=== PATIENT | male | born 1975 | race African-American/Black ===

== ENCOUNTER 2023-08-03 15:23 | Outpatient (AMB) | payer OTHER, SELFPAY ==
--- NOTE | 2023-08-03 15:29 | HO.NEPHOV_ITS ---
Vital Signs 08/03/23 15:30 Height 6 ft 2 in Weight 272 lb BMI 34.9 BP 140/80 H Blood Pressure Location Lt brachial Position Sitting Pulse 92 Pulse Source Pulse Oximeter Pulse Oximetry (%) 98 Oxygen Delivery Method Room Air Intake Visit Reasons: Previous pt/ LVM to call back to move apt Client Account Specialist Required: No Accompanied by: Self / Same As Patient Allergies No Known Allergies Allergy (Verified 08/03/23 15:32) HPI Comments Details: I had the privilege of seeing Chadd in follow-up of his chronic kidney disease and hypertension. He had high blood sugars for a long time but is better control now. His blood pressure has been at goal. He has lost some weight after he was started on Ozempic. He has history of congestive heart failure but denies any coronary artery disease, CVA, PVD or ADRIAN. He is known to have proteinuria. He has history of gout and is on medications which is keeping it under good control. He denies any chest pain, shortness of breath, paroxysmal nocturnal dyspnea, orthopnea, pedal edema or orthostatic symptoms. He claims to be compliant with his medications. He avoids nonsteroidal anti-inflammatories. There were no other new active complaints at the time of this office visit. [facility] Medical History (Updated 08/30/23 @ 17:13 by Ga Liu MD) Rupture quadriceps tendon Surgical History (Updated 08/03/23 @ 15:39 by Dixie Taveras MA) History of surgery on lower extremity History of hand surgery History of surgical removal of meniscus of knee Family History (Updated 08/03/23 @ 15:35 by Dixie Taveras MA) Father Diabetes Social History (Updated 08/03/23 @ 15:35 by Dixie Taveras MA) Alcohol intake: current Patient Tobacco Use Status: Never used Tobacco Physical Exam Vital Signs: Last Vital Signs Pulse 92 08/03/23 15:30 BP 140/80 H 08/03/23 15:30 Pulse Ox 98 08/03/23 15:30 Oxygen Delivery Method Room Air 08/03/23 15:30 BMI result Body Mass Index 34.9 Const General: comfortable and no acute distress Orientation/consciousness: patient oriented x3 HEENT Head: Yes normocephalic Mouth: Normal oral and palatal mucosa present Eyes EOM: EOMs intact bilaterally Neck Neck: Yes supple Resp Auscultation: clear to auscultation bilaterally Cardio Jugular venous distension: no JVD Rate: regular rate GI Palpation (GI): Soft to palpation Auscultation: normal bowel sounds General: Yes no CVA tenderness Back/Spine/Pelvis Back: no CVA tenderness Skin General skin exam: no rashes or lesions noted Neuro General: patient oriented x3 and moves all extremities Extrem General: Yes no pedal edema Results Reviewed Nephrology Results: Hgb 11.5 g/dl (14.0-18.0) L 08/03/23 WBC 5.9 X10*3/uL (4.8-10.8) 08/03/23 Plt Count 194 X10*3/uL (160-400) 08/03/23 Sodium 138 mmol/L (135-145) 08/03/23 Potassium 3.7 mmol/L (3.3-5.1) 08/03/23 Chloride 103 mmol/L (96-108) 08/03/23 Carbon Dioxide 24 mmol/L (22-29) 08/03/23 BUN 40 mg/dL (9-16) H 08/03/23 Creatinine 1.79 mg/dL (0.5-1.4) H 08/03/23 Calcium 9.6 mg/dL (8.4-10.2) 08/03/23 Urine Creatinine 178.86 mg/dL 08/03/23 Protein/Creatinin Ratio 0.60 (<0.2) H 08/03/23 Assessment & Plan Assessment & Plan (1) Hypertension: Code(s): I10 - Essential (primary) hypertension Category: Medical Qualifiers: Hypertension type: primary hypertension Qualified Code(s): I10 - Essential (primary) hypertension (2) Diabetic nephropathy: Code(s): E11.21 - Type 2 diabetes mellitus with diabetic nephropathy Category: Medical (3) Hyperuricemia: Code(s): E79.0 - Hyperuricemia without signs of inflammatory arthritis and tophaceous disease Category: Medical (4) CKD stage 3a, GFR 45-59 ml/min: Code(s): N18.31 - Chronic kidney disease, stage 3a Category: Medical Plan 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 His proteinuric. He denies any retinopathy. His blood pressure is better controlled. He has not on any ARCENIO inhibitor or ARB which I plan to initiate with time. He needs to lose more weight. He is on spironolactone. He has a great candidate for [employer] or [employer]. His renal functions are currently stable. He maintains good hydration and avoids nonsteroidal anti- inflammatories. I did not make any medication changes today but rather discussed his CKD and further ongoing management strategies. Answered all questions. Follow-up appointment given. Orders: Orders Complete Blood Count Auto Diff 08/03/23 I10 - Essential (primary) hypertension, E11.21 - Type 2 diabetes mellitus with diabetic nephropathy Creatinine 08/03/23 I10 - Essential (primary) hypertension, E11.21 - Type 2 diabetes mellitus with diabetic nephropathy Uric Acid 08/03/23 E79.0 - Hyperuricemia without signs of inflammatory arthritis and tophaceous disease, E11.21 - Type 2 diabetes mellitus with diabetic nephropathy, I10 - Essential (primary) hypertension Hemoglobin A1c 08/03/23 I10 - Essential (primary) hypertension, E11.21 - Type 2 diabetes mellitus with diabetic nephropathy Protein Creatinine Ratio, Ur 08/03/23 I10 - Essential (primary) hypertension, E11.21 - Type 2 diabetes mellitus with diabetic nephropathy Blood Urea Nitrogen 08/03/23 I10 - Essential (primary) hypertension, E11.21 - Type 2 diabetes mellitus with diabetic nephropathy Electrolytes 08/03/23 I10 - Essential (primary) hypertension, E11.21 - Type 2 diabetes mellitus with diabetic nephropathy Calcium 08/03/23 I10 - Essential (primary) hypertension, E11.21 - Type 2 diabetes mellitus with diabetic nephropathy Coding Level of Care Code Est Pt Level 4 (35919) Diagnoses Primary hypertension I10 Hypertension type: primary hypertension Diabetic nephropathy E11.21 Hyperuricemia E79.0 CKD stage 3a, GFR 45-59 ml/min N18.31
[2023-08-03 15:30] VITALS: BP 140/80; PULSE 92; O2SAT 98; BMI 34.9
== END 2023-08-03 16:35 | disposition home or self-care (01) ==
PROVIDERS: Visit Provider Internal Medicine Nephrology
DX: I10 Essential (primary) hypertension (principal); E11.21 Type 2 diabetes mellitus with diabetic nephropathy; E79.0 Hyperuricemia without signs of inflammatory arthritis and tophaceous disease; N18.31 Chronic kidney disease, stage 3a
CPT/HCPCS: 99214

== ENCOUNTER 2023-08-03 15:23 | Outpatient (REF) | payer OTHER, SELFPAY ==
[2023-08-03 19:09] LABS: MANUAL DIFF FLAG NO
[2023-08-03 19:23] LABS: Basophils Percent Auto 0.7 % (0-2); Eosinophils Percent Auto 0.7 % (0-4); Hematocrit 35.4 % (42.0-52.0); Hemoglobin 11.5 g/dl (14.0-18.0); Imm Gran Abs Auto 0.01 X10*3/uL (0.00-0.03); Imm Gran Pct Auto 0.2 % (0.0-0.4); Lymphocytes Absolute Auto 2.4 X10*3/uL (1.2-4.9); Lymphocytes Percent Auto 40.3 % (20-40); Mean Corpuscular HGB Conc 32.5 g/dl (31.0-36.0); Mean Corpuscular Hemoglobin 27.7 pg (27.0-33.0); Mean Corpuscular Volume 85.3 fL (80.0-98.0); Mean Platelet Volume 12.4 fL (9.4-12.4); Monocytes Absolute Auto 0.5 X10*3/uL (0.1-1.2); Monocytes Percent Auto 9.2 % (2-11); Neutrophils Absolute Auto 2.9 x10*3/uL (2.0-8.3); Neutrophils Percent Auto 48.9 % (45-73); Platelet Count 194 X10*3/uL (160-400); Red Blood Count 4.15 X10*6/uL (4.60-5.80); Red Cell Distribution Width 14.9 % (11.0-16.0); White Blood Count 5.9 X10*3/uL (4.8-10.8)
[2023-08-03 19:37] LABS: Estimated Average Glucose 169 mg/dL; Hemoglobin A1c % 7.5 % (<6.0)
[2023-08-03 20:08] LABS: Anion Gap 15 (12-20); Blood Urea Nitrogen 40 mg/dL (9-16); Calcium 9.6 mg/dL (8.4-10.2); Carbon Dioxide 24 mmol/L (22-29); Chloride 103 mmol/L (96-108); Creatinine Urine 178.86 mg/dL; Estimated Glomerular Filt Rate 40; Potassium 3.7 mmol/L (3.3-5.1); Sodium 138 mmol/L (135-145); Total Protein Urine Random 107 mg/dL (<12); Uric Acid 9.5 mg/dL (3.4-7.0)
== END 2023-08-03 15:24 | disposition home or self-care (01) ==
LOC: HO.HKASLDS 15:23
PROVIDERS: Visit Provider Internal Medicine Nephrology
DX: I12.9 Hypertensive chronic kidney disease with stage 1 through stage 4 chronic kidney disease, or unspecified chronic kidney disease (principal); E11.22 Type 2 diabetes mellitus with diabetic chronic kidney disease; N18.31 Chronic kidney disease, stage 3a; E11.21 Type 2 diabetes mellitus with diabetic nephropathy; E79.0 Hyperuricemia without signs of inflammatory arthritis and tophaceous disease
CPT/HCPCS: 36415; 80051; 82310; 82565; 82570; 83036; 84156; 84520; 84550; 85025

== ENCOUNTER 2023-11-11 15:11 | Outpatient (AMB) | payer OTHER, SELFPAY ==
--- NOTE | 2023-11-11 15:28 | HO.NEPHOV ---
Vital Signs 11/11/23 15:29 Height 6 ft 2 in Weight 277 lb 2 oz BMI 35.6 BP 130/70 Blood Pressure Location Lt brachial Position Sitting Pulse 90 Pulse Source Pulse Oximeter Pulse Oximetry (%) 99 Oxygen Delivery Method Room Air Intake Visit Reasons: Creatinine f/u visit/ LVM Inspector Salvage Required: No Accompanied by: Self / Same As Patient Allergies No Known Allergies Allergy (Verified 11/11/23 15:30) HPI Comments Details: I had the privilege of seeing Chadd in follow-up of his chronic kidney disease and hypertension. He had high blood sugars for a long time but is better control now. His blood pressure has been at goal. He has lost some weight after he was started on Ozempic. He has history of congestive heart failure but denies any coronary artery disease, CVA, PVD or ADRIAN. He is known to have proteinuria. He has history of gout and is on medications which is keeping it under good control. He denies any chest pain, shortness of breath, paroxysmal nocturnal dyspnea, orthopnea, pedal edema or orthostatic symptoms. He claims to be compliant with his medications. He avoids nonsteroidal anti-inflammatories. He is on ACEI. There were no other new active complaints at the time of this office visit. [facility] Medical History (Updated 11/11/23 @ 15:35 by Ga Liu MD) Rupture quadriceps tendon Surgical History History of surgery on lower extremity History of hand surgery History of surgical removal of meniscus of knee Family History Father Diabetes Social History Alcohol intake: current Patient Tobacco Use Status: Never used Tobacco Physical Exam Vital Signs: Last Vital Signs Pulse 90 11/11/23 15:29 BP 130/70 11/11/23 15:29 Pulse Ox 99 11/11/23 15:29 Oxygen Delivery Method Room Air 11/11/23 15:29 BMI result Body Mass Index 35.6 Results Reviewed Nephrology Results: Hgb 11.5 g/dl (14.0-18.0) L 08/03/23 WBC 5.9 X10*3/uL (4.8-10.8) 08/03/23 Plt Count 194 X10*3/uL (160-400) 08/03/23 Sodium 138 mmol/L (135-145) 08/03/23 Potassium 3.7 mmol/L (3.3-5.1) 08/03/23 Chloride 103 mmol/L (96-108) 08/03/23 Carbon Dioxide 24 mmol/L (22-29) 08/03/23 BUN 40 mg/dL (9-16) H 08/03/23 Creatinine 1.79 mg/dL (0.5-1.4) H 08/03/23 Calcium 9.6 mg/dL (8.4-10.2) 08/03/23 Urine Creatinine 178.86 mg/dL 08/03/23 Protein/Creatinin Ratio 0.60 (<0.2) H 08/03/23 Assessment & Plan Assessment & Plan (1) CKD stage 3a, GFR 45-59 ml/min: Code(s): N18.31 - Chronic kidney disease, stage 3a Category: Medical (2) Diabetic nephropathy: Code(s): E11.21 - Type 2 diabetes mellitus with diabetic nephropathy Category: Medical Qualifiers: Diabetes mellitus type: type 2 Qualified Code(s): E11.21 - Type 2 diabetes mellitus with diabetic nephropathy (3) Hypertension: Code(s): I10 - Essential (primary) hypertension Category: Medical Qualifiers: Hypertension type: primary hypertension Qualified Code(s): I10 - Essential (primary) hypertension Plan 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 He is proteinuric. He is on ACEI. He denies any retinopathy. His blood pressure is better controlled. He needs to lose more weight. He is on spironolactone. I started on Jardiance 10 mg daily and asked him to D/C metformin. His renal functions are currently stable. Labs from today pending. He maintains good hydration and avoids nonsteroidal anti-inflammatories. Answered all questions. Follow-up appointment given. Orders: Orders Blood Urea Nitrogen Today E11.21 - Type 2 diabetes mellitus with diabetic nephropathy, I10 - Essential (primary) hypertension, N18.31 - Chronic kidney disease, stage 3a Creatinine Today E11.21 - Type 2 diabetes mellitus with diabetic nephropathy, I10 - Essential (primary) hypertension, N18.31 - Chronic kidney disease, stage 3a Electrolytes Today E11.21 - Type 2 diabetes mellitus with diabetic nephropathy, I10 - Essential (primary) hypertension, N18.31 - Chronic kidney disease, stage 3a Medications: New empagliflozin (Jardiance) 10 mg PO DAILY 30 tabs 6RF Coding Level of Care Code Est Pt Level 4 (38795) Diagnoses CKD stage 3a, GFR 45-59 ml/min N18.31 Diabetic nephropathy associated with type 2 diabetes mellitus E11.21 Diabetes mellitus type: type 2 Primary hypertension I10 Hypertension type: primary hypertension
[2023-11-11 15:29] VITALS: BP 130/70; PULSE 90; O2SAT 99; BMI 35.6
== END 2023-11-11 15:49 | disposition home or self-care (01) ==
PROVIDERS: Visit Provider Internal Medicine Nephrology
DX: N18.31 Chronic kidney disease, stage 3a (principal); E11.21 Type 2 diabetes mellitus with diabetic nephropathy; I10 Essential (primary) hypertension
CPT/HCPCS: 99214

== ENCOUNTER → 2023-11-11 15:11 | Outpatient (BNVA) | payer OTHER, SELFPAY | PROVIDERS: Visit Provider Internal Medicine Nephrology ==

== ENCOUNTER 2024-01-20 14:53 | Outpatient (AMB) | payer OTHER, SELFPAY ==
--- NOTE | 2024-01-20 14:54 | HO.NEPHOV_ITS ---
Vital Signs 01/20/24 15:05 Height 6 ft 2 in Weight 267 lb BMI 34.3 BP 120/72 Blood Pressure Location Lt brachial Position Sitting Pulse 85 Pulse Source Pulse Oximeter Pulse Oximetry (%) 99 Oxygen Delivery Method Room Air Intake Visit Reasons: 2 mon follow up/ Conf Barrel Rifler Operator Required: No Accompanied by: Self / Same As Patient Allergies No Known Allergies Allergy (Verified 01/20/24 15:06) HPI Comments Details: I had the privilege of seeing Chadd in follow-up of his chronic kidney disease and hypertension. He had high blood sugars for a long time but is better control now. His blood pressure has been at goal. He has lost some weight after he was started on Ozempic. He has history of congestive heart failure but denies any coronary artery disease, CVA, PVD or ADRIAN. He is known to have proteinuria. He has history of gout and is on medications which is keeping it under good control. He denies any chest pain, shortness of breath, paroxysmal nocturnal dyspnea, orthopnea, pedal edema or orthostatic symptoms. He claims to be compliant with his medications. He avoids nonsteroidal anti-inflammatories. He is on ACEI. There were no other new active complaints at the time of this office visit. [facility] Medical History (Updated 11/11/23 @ 15:35 by Ga Liu MD) Rupture quadriceps tendon Surgical History History of surgery on lower extremity History of hand surgery History of surgical removal of meniscus of knee Family History Father Diabetes Social History Alcohol intake: current Patient Tobacco Use Status: Never used Tobacco Review of Systems Const All systems reviewed & are unremarkable except as noted in HPI and below Physical Exam Vital Signs: Last Vital Signs Pulse 85 01/20/24 15:05 BP 120/72 01/20/24 15:05 Pulse Ox 99 01/20/24 15:05 Oxygen Delivery Method Room Air 01/20/24 15:05 BMI result Body Mass Index 34.3 Const General: comfortable and no acute distress Orientation/consciousness: patient oriented x3 HEENT Head: Yes normocephalic Mouth: Normal oral and palatal mucosa present Eyes EOM: EOMs intact bilaterally Neck Neck: Yes supple Resp Auscultation: clear to auscultation bilaterally Cardio Jugular venous distension: no JVD Rate: regular rate GI Palpation (GI): Soft to palpation Auscultation: normal bowel sounds General: Yes no CVA tenderness Back/Spine/Pelvis Back: no CVA tenderness Skin General skin exam: no rashes or lesions noted Neuro General: patient oriented x3 and moves all extremities Extrem General: Yes no pedal edema Assessment & Plan Assessment & Plan (1) CKD stage 3a, GFR 45-59 ml/min: Code(s): N18.31 - Chronic kidney disease, stage 3a Category: Medical (2) Hyperuricemia: Code(s): E79.0 - Hyperuricemia without signs of inflammatory arthritis and tophaceous disease Category: Medical (3) Diabetic nephropathy: Code(s): E11.21 - Type 2 diabetes mellitus with diabetic nephropathy Category: Medical Qualifiers: Diabetes mellitus type: type 2 Qualified Code(s): E11.21 - Type 2 diabetes mellitus with diabetic nephropathy (4) Hypertension: Code(s): I10 - Essential (primary) hypertension Category: Medical Qualifiers: Hypertension type: primary hypertension Qualified Code(s): I10 - Essential (primary) hypertension Plan 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 He is proteinuric. He is on ACEI. He denies any retinopathy. His blood pressure is better controlled. He needs to lose more weight. He is on spironolactone. He is on Jardiance 10 mg daily and off metformin. His renal functions had been stable. He maintains good hydration and avoids nonsteroidal anti-inflammatories. Answered all questions. Follow-up appointment given. Orders: Orders Blood Urea Nitrogen 3 Months E11.21 - Type 2 diabetes mellitus with diabetic nephropathy, I10 - Essential (primary) hypertension, N18.31 - Chronic kidney disease, stage 3a Protein Creatinine Ratio, Ur 3 Months E11.21 - Type 2 diabetes mellitus with diabetic nephropathy, I10 - Essential (primary) hypertension, N18.31 - Chronic kidney disease, stage 3a Hemoglobin A1c 3 Months E11.21 - Type 2 diabetes mellitus with diabetic nephropathy, I10 - Essential (primary) hypertension, N18.31 - Chronic kidney disease, stage 3a Creatinine 3 Months E11.21 - Type 2 diabetes mellitus with diabetic nephropathy, I10 - Essential (primary) hypertension, N18.31 - Chronic kidney disease, stage 3a Electrolytes 3 Months E11.21 - Type 2 diabetes mellitus with diabetic nephropathy, I10 - Essential (primary) hypertension, N18.31 - Chronic kidney disease, stage 3a Coding Level of Care Code Est Pt Level 4 (56339) Diagnoses CKD stage 3a, GFR 45-59 ml/min N18.31 Hyperuricemia E79.0 Diabetic nephropathy associated with type 2 diabetes mellitus E11.21 Diabetes mellitus type: type 2 Primary hypertension I10 Hypertension type: primary hypertension
[2024-01-20 15:05] VITALS: BP 120/72; PULSE 85; O2SAT 99; BMI 34.3
== END 2024-01-20 15:19 | disposition home or self-care (01) ==
PROVIDERS: Visit Provider Internal Medicine Nephrology
DX: N18.31 Chronic kidney disease, stage 3a (principal); E79.0 Hyperuricemia without signs of inflammatory arthritis and tophaceous disease; E11.21 Type 2 diabetes mellitus with diabetic nephropathy; I10 Essential (primary) hypertension
CPT/HCPCS: 99214

== ENCOUNTER → 2024-01-20 14:53 | Outpatient (BNVA) | payer OTHER, SELFPAY | PROVIDERS: Visit Provider Internal Medicine Nephrology ==

== ENCOUNTER 2024-04-25 15:20 | Outpatient (REF) | payer OTHER, SELFPAY ==
[2024-04-25 18:23] LABS: Estimated Average Glucose 148 mg/dL; Hemoglobin A1C 131.0208 umol/L; Hemoglobin A1c % 6.8 % (<6.0); Total Hemoglobin (HGBA1C) 2604.7605 umol/L
[2024-04-25 18:25] LABS: Anion Gap 15 (12-20); Blood Urea Nitrogen 34 mg/dL (9-16); Carbon Dioxide 19 mmol/L (22-29); Chloride 105 mmol/L (96-108); Estimated Glomerular Filt Rate 59; Potassium 4.3 mmol/L (3.3-5.1); Sodium 135 mmol/L (135-145)
[2024-04-25 18:43] LABS: Creatinine Urine 136.29 mg/dL; Protein/Creatinine Ratio, Ur 0.14 (<0.2); Total Protein Urine Random 19 mg/dL (<12)
--- OUTSIDE RECORDS SUMMARY | 2024-04-25 19:14 | XMS_ITS | Continuity of Care Document ---
Author Organization [facility] [address] [place] [address] Phone [phone] Care Team Providers Care Shearing Machine Operator Name Role Phone Keven Silver M.D. Care Team Information Recei lashaun [phone] Social History Type Date Description Comments Sex Unknown Medical Devices Description No Information Available Encounters Description No Information Available Assessments Date Code Description Provider 10/17/2021 R73.02 Impaired glucose tolerance ( oral) Prem Duron M.D. Plan of Treatment Future Appointment(s):* 06/28/2024 1:45 pm - Prem Duron M.D. at Main Office Functional Status Description No Information Available Mental Status Description No Information Available Referrals Description No Information Available
== END 2024-04-25 15:21 | disposition home or self-care (01) ==
LOC: HO.HKASLDS 15:20
PROVIDERS: Visit Provider Internal Medicine Nephrology
DX: I10 Essential (primary) hypertension (principal); E11.21 Type 2 diabetes mellitus with diabetic nephropathy; N18.31 Chronic kidney disease, stage 3a
CPT/HCPCS: 36415; 80051; 82565; 82570; 83036; 84156; 84520

== ENCOUNTER 2024-04-27 15:01 | Outpatient (AMB) | payer OTHER, SELFPAY ==
[2024-04-27 15:52] VITALS: BP 120/70; PULSE 89; O2SAT 100; BMI 35.1
--- NOTE | 2024-04-27 15:52 | HO.NEPHOV ---
Vital Signs 04/27/24 15:52 Height 6 ft 2 in Weight 273 lb 2 oz BMI 35.1 BP 120/70 Blood Pressure Location Lt brachial Position Sitting Pulse 89 Pulse Source Pulse Oximeter Pulse Oximetry (%) 100 Oxygen Delivery Method Room Air Intake Visit Reasons: 3 mon follow up-[facility] Anesthesiologist Assistant Certified Required: No Accompanied by: Self / Same As Patient Allergies No Known Allergies Allergy (Verified 04/27/24 15:52) HPI Comments Details: Chadd was seen in follow-up of his chronic kidney disease and hypertension. He had high blood sugars for a long time but is better control now. His blood pressure has been at goal. He is on Ozempic. He has history of congestive heart failure but denies any coronary artery disease, CVA, PVD or ADRIAN. He is known to have proteinuria. He has history of gout and is on medications which is keeping it under good control. He denies any chest pain, shortness of breath, paroxysmal nocturnal dyspnea, orthopnea, pedal edema or orthostatic symptoms. He claims to be compliant with his medications. He avoids nonsteroidal anti-inflammatories. He is on ACEI. There were no other new active complaints at the time of this office visit. [facility] Medical History (Updated 11/11/23 @ 15:35 by Ga Liu MD) Rupture quadriceps tendon Surgical History History of surgery on lower extremity History of hand surgery History of surgical removal of meniscus of knee Family History Father Diabetes Social History Alcohol intake: current Patient Tobacco Use Status: Never used Tobacco Review of Systems Const All systems reviewed & are unremarkable except as noted in HPI and below Physical Exam Vital Signs: Last Vital Signs Pulse 89 04/27/24 15:52 BP 120/70 04/27/24 15:52 Pulse Ox 100 04/27/24 15:52 Oxygen Delivery Method Room Air 04/27/24 15:52 BMI result Body Mass Index 35.1 Const General: comfortable and no acute distress Orientation/consciousness: patient oriented x3 HEENT Head: Yes normocephalic Mouth: Normal oral and palatal mucosa present Eyes EOM: EOMs intact bilaterally Neck Neck: Yes supple Resp Auscultation: clear to auscultation bilaterally Cardio Jugular venous distension: no JVD Rate: regular rate GI Palpation (GI): Soft to palpation Auscultation: normal bowel sounds General: Yes no CVA tenderness Back/Spine/Pelvis Back: no CVA tenderness Skin General skin exam: no rashes or lesions noted Neuro General: patient oriented x3 and moves all extremities Extrem General: Yes no pedal edema Assessment & Plan Assessment & Plan (1) CKD stage 3a, GFR 45-59 ml/min: Code(s): N18.31 - Chronic kidney disease, stage 3a Category: Medical (2) Hyperuricemia: Code(s): E79.0 - Hyperuricemia without signs of inflammatory arthritis and tophaceous disease Category: Medical (3) Diabetic nephropathy: Code(s): E11.21 - Type 2 diabetes mellitus with diabetic nephropathy Category: Medical Qualifiers: Diabetes mellitus type: type 2 Qualified Code(s): E11.21 - Type 2 diabetes mellitus with diabetic nephropathy (4) Hypertension: Code(s): I10 - Essential (primary) hypertension Category: Medical Qualifiers: Hypertension type: primary hypertension Qualified Code(s): I10 - Essential (primary) hypertension Plan 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 His proteinuric is better. He is on ACEI. He denies any retinopathy. His blood pressure is better controlled. He needs to lose more weight. He is on spironolactone. He is on Jardiance 10 mg daily and off metformin. His renal functions had been stable. He maintains good hydration and avoids nonsteroidal anti-inflammatories. Answered all questions. Follow-up appointment given. Orders: Orders Creatinine 4 Months E11.21 - Type 2 diabetes mellitus with diabetic nephropathy, E79.0 - Hyperuricemia without signs of inflammatory arthritis and tophaceous disease, I10 - Essential (primary) hypertension, N18.31 - Chronic kidney disease, stage 3a Blood Urea Nitrogen 4 Months E11.21 - Type 2 diabetes mellitus with diabetic nephropathy, E79.0 - Hyperuricemia without signs of inflammatory arthritis and tophaceous disease, I10 - Essential (primary) hypertension, N18.31 - Chronic kidney disease, stage 3a Electrolytes 4 Months E11.21 - Type 2 diabetes mellitus with diabetic nephropathy, E79.0 - Hyperuricemia without signs of inflammatory arthritis and tophaceous disease, I10 - Essential (primary) hypertension, N18.31 - Chronic kidney disease, stage 3a Protein Creatinine Ratio, Ur 4 Months E11.21 - Type 2 diabetes mellitus with diabetic nephropathy, E79.0 - Hyperuricemia without signs of inflammatory arthritis and tophaceous disease, I10 - Essential (primary) hypertension, N18.31 - Chronic kidney disease, stage 3a Coding Level of Care Code Est Pt Level 4 (76938) Diagnoses CKD stage 3a, GFR 45-59 ml/min N18.31 Hyperuricemia E79.0 Diabetic nephropathy associated with type 2 diabetes mellitus E11. Diabetes mellitus type: type 2 Primary hypertension I10 Hypertension type: primary hypertension
== END 2024-04-27 16:10 | disposition home or self-care (01) ==
PROVIDERS: Visit Provider Internal Medicine Nephrology
DX: N18.31 Chronic kidney disease, stage 3a (principal); E79.0 Hyperuricemia without signs of inflammatory arthritis and tophaceous disease; E11.21 Type 2 diabetes mellitus with diabetic nephropathy; I10 Essential (primary) hypertension
CPT/HCPCS: 99214

== ENCOUNTER 2024-08-30 15:43 | Outpatient (REF) | payer OTHER, SELFPAY ==
--- OUTSIDE RECORDS SUMMARY | 2024-08-30 15:46 | XMS_ITS | Encounter Summary ---
Author Organization [facility] Address [address] [place] [address] Phone Care Team Providers Care Digital Art Director Name Role Phone Keven Silver MD Primary Care Provider [phone] Reason for Visit * Reason Comments Med Refill Encounter Details Date Type Department Care Team (Late st Contact Info) Description 05/10/2022 Refill [facility] [address] [place] [address] Ga Liu MD Social History Tobacco Use Types Packs/Day Years Used Date Smoking Tobacco: Former Smokeless Tobacco: Never Alcohol Use Standard Drinks/Week Comments Yes 0 (1 standard drink = 0.6 oz pur e alcohol) Sex and Gender Information Value Date Recorded Sex Assigned at Not on file Legal Sex Male 5:06 PM EST Gender Identity Not on file Sexual Orientation Not on file documented as of this encounter Plan of Treatment Not on file documented as of this encounter Visit Diagnoses Not on filedocumented in this encounter Care Teams Digital Art Director Relationship Specialty Start Date End Date Keven Silver MD [address] [place] [address] PCP - General Internal Medicine 07/17/21 documented as of this encounter
--- OUTSIDE RECORDS SUMMARY | 2024-08-30 15:46 | XMS_ITS | Clinical Summary ---
Author Organization [facility] Address [address] [address] Phone Care Team Providers Care Fisher Line Name Role Phone Keven Silver MD Primary Care Provider + [phone] Allergies No known active allergies Medications Basaglar KwikPen 100 UNIT/ML injection ADMINISTER 20 UNITS UNDER THE SKIN EVERY DAY 2 Active metFORMIN XR (GLUCOPHAGE-XR) 500 MG 24 hr tablet Take 500 mg by mouth in the morning and 500 mg in the evening. 2 Active rosuvastatin (CRESTOR) 40 MG tablet Take 40 mg by mouth 1 (one) time each day 2 Active Ozempic, 0.25 or 0.5 MG/DOSE, 2 MG/1.5ML solution pen-injector INJECT 0.5 MG UNDER THE SKIN ONCE WEEKLY 2 Active carvedilol (COREG) 25 MG tablet Take 25 mg by mouth in the morning and 25 mg in the evening. Take with meals. Active spironolactone (ALDACTONE) 25 MG tablet Take 25 mg by mouth 1 (one) time each day 2 Active furosemide (LASIX) 40 MG tablet Take 40 mg by mouth in the morning and 40 mg in the evening. 2 Active colchicine 0.6 MG tablet Take 0.6 mg by mouth 1 (one) time each day 2 Active folic acid (FOLVITE) 1 MG tablet Take 1 tablet by mouth 1 (one) time each day 2 Active allopurinol (ZYLOPRIM) 300 MG tablet Take 300 mg by mouth 1 (one) time each day 2 Active indomethacin (INDOCIN) 25 MG capsule Take 25 mg by mouth 1 (one) time each day 2 Active FeroSul 325 (65 Fe) MG tablet Take 1 tablet by mouth every other day 2 Active Active Problems Problem Noted Date Diagnosed Date Stage 3a chronic kidney disease 12/23/2021 Essential (primary) hypertension 12/23/2021 Anemia 12/12/2021 Folic acid level - finding 12/12/2021 Gouty arthritis of multiple sites 12/12/2021 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 Acute nontraumatic kidney injury 07/17/2021 Family History Medical History Relation Comments Diabetes Father Hypertension Father Cancer Paternal Grandmother Relation Status Comments Father Alive Mother Alive Paternal Grandmother Social History Tobacco Use Types Packs/Day Years Used Date Smoking Tobacco: Former Smokeless Tobacco: Never Alcohol Use Standard Drinks/Week Comments Yes 0 (1 standard drink = 0.6 oz pur e alcohol) Sex and Gender Information Value Date Recorded Sex Assigned at Not on file Legal Sex Male 5:06 PM EST Gender Identity Not on file Sexual Orientation Not on file Last Filed Vital Signs Vital Sign Reading Time Taken Comments Blood Pressure 134/82 12/23/2021 4:24 PM EDT Pulse 81 12/23/2021 4:24 PM EDT Temperature - - Respiratory Rate - - Oxygen Saturation - - Inhaled Oxygen Concentration - - Weight 121 kg (267 lb 9.6 oz) 12/23/2021 4:24 PM EDT Height - - Body Mass Index - - Plan of Treatment Health Maintenance Due Date Last Done Comments Hepatitis B Vaccine (1 of 3 - 19+ 3-dose series) 02/13 Pneumococcal Vaccine: 50+ Years (1 of 2 - PCV) 992 Colorectal Cancer Screening: Annual FOBT 2022 Colorectal Cancer Screening: Colonoscopy 2022 Colorectal Cancer Screening: Sigmoidoscopy 2022 Diabetes: Hemoglobin A1C 08/15/2024 Diabetes: Ophthalmology Exam 08/15/2024 Diabetes: Pedal Pulse Checked 08/15/2024 Diabetes: Sensory Foot Exam 08/15/2024 Diabetes: Visual Foot Exam 08/15/2024 Influenza Vaccine (Season Ended) 2024 Insurance [employer] C[employer] Care Teams Fisher Line Relationship Specialty Start Date End Date Keven Silver MD [address] [place] [address] PCP - General Internal Medicine 07/17/21
--- OUTSIDE RECORDS SUMMARY | 2024-08-30 15:46 | XMS_ITS | Encounter Summary ---
Author Organization [facility] Address [address] [place] [address] Phone Care Team Providers Care Receiving Clerk Name Role Phone Keven Silver MD Primary Care Provider + [phone] Reason for Visit * Reason Comments Med Refill Encounter Details Date Type Department Care Team (Late st Contact Info) Description 09/12/2021 Refill [facility] [address] [place] [address] Ga Liu MD Social History Tobacco Use Types Packs/Day Years Used Date Smoking Tobacco: Former Smokeless Tobacco: Former Alcohol Use Standard Drinks/Week Comments Yes 0 [...] on filedocumented in this encounter Care Teams Receiving Clerk Relationship Specialty Start Date End Date Keven Silver MD [address] [place] [address] PCP - General Internal Medicine 07/17/21 documented as of this encounter
--- OUTSIDE RECORDS SUMMARY | 2024-08-30 15:46 | XMS_ITS | Clinical Summary ---
Author Organization [address] [facility] Address [address] [place] [address] Phone Care Team Providers Care Business Office Director Name Role Phone Keven Silver MD Primary Care Provider + [phone] Allergies No known active allergies Medications allopurinoL (ZYLOPRIM) 100 mg tablet Take 1 tablet (100 mg total) by mouth 1 (one) time each day. Changed by Dr. Guerra (renal ) Active carvediloL (COREG) 25 mg tablet Take 1 tablet (25 mg total) by mouth 1 (one) time each day. Changed by Dr. Guerra (renal) Active colchicine (COLCRYS) 0.6 mg tablet Take 1 Tablet by mouth daily as needed. Active folic acid (FOLVITE) 1 mg tablet Take 1 Tablet by mouth daily. Active metFORMIN (GLUCOPHAGE) 500 mg tablet Take 500 mg by mouth 2 Times Daily. Active semaglutide (Ozempic) 0.25 mg or 0.5 mg(2 mg/1.5 mL) injection pen Inject 0.5 mL into the skin once a week. Active FeroSuL 325 mg (65 mg iron) tablet Take 1 tablet (325 mg total) by mouth every other day. Active rosuvastatin (CRESTOR) 20 mg tablet TAKE 1 TABLET BY MOUTH DAILY 90 tablet 2 4 Active lisinopriL (PRINIVIL,ZESTRIL ) 10 mg tablet Take 1 tablet (10 mg total) by mouth 1 (one) time each day. Active empagliflozin (Jardiance) 10 mg tablet Take 1 tablet (10 mg total) by mouth 1 (one) time each day. Active amLODIPine (NORVASC) 5 mg tablet Take by mouth 1 (one) time each day. Active insulin glargine U-300 conc (Toujeo Max U-300 SoloStar) 300 unit/mL (3 mL) CONCENTRATED injection pen Inject 26 Units under the skin at bedtime. Active furosemide (LASIX) 40 mg tablet TAKE 1 TABLET BY MOUTH TWICE DAILY 180 tablet 3 5 Active spironolactone (ALDACTONE) 25 mg tablet TAKE 1/2 TABLET BY MOUTH DAILY 45 tablet 1 5 Active Active Problems Problem Noted Date Diagnosed Date Congestive heart failure ([facility] V24, [facility] V 28) 07/01/2020 Overview (01/25/2024): Congestive heart failure Hypertension 07/01/2020 Overview (01/25/2024): Last Assessment & Plan: Controlled, continue current regimen. Hyperlipidemia 07/01/2020 Overview (01/25/2024): Last Assessment & Plan: Last lipid panel 10/08 total cholesterol 171, HDL 65, LDL 80. Continue statin. Nonischemic cardiomyopathy ([facility] V24, [facility] V28) 03/26/2020 Overview (01/25/2024): Last Assessment & Plan: No ischemic or heart failure symptoms, ACS ruled out in hospital. He is feeling quite well on his current regimen. Continue BB, ARCENIO, spironolactone, furosemide. Reviewed signs and symptoms of heart failure and educated regarding monitoring weight, diet, and fluid intake. If there is a weight gain of 3 pounds in one day or 5 pounds in a week please call our office or seek medical attention if necessary. Surgical History Surgery Date Site/Laterality Comments KNEE SURGERY Left torn meniscus and quadriceps tendon rupture WRIST SURGERY Right tendon rupture HAND SURGERY Right TENDON REPAIR Medical History Medical History Date Comments Adrenal nodule ([facility] V24) PETER (acute kidney injury) ([facility] V24) Bilateral foot pain Bilateral knee pain Chest pain Covid-19 02/2021 Diabetes ([facility] V24, [facility] V28) Contraindication to deep vein thrombosis (DVT) p rophylaxis Gout Morbid obesity ([facility] V24, [facility] V28) Hyperlipidemia Hypertension Family History Medical History Relation Name Comments Aortic aneurysm Father Relation Name Status Comments Father Alive Social History Tobacco Use Types Packs/Day Years Used Date Smoking Tobacco: Never Smokeless Tobacco: Never Tobacco Cessation:Counseling Given: Not Answered Alcohol Use Standard Drinks/Week Comments Not Currently 1 (1 standard drink = 0.6 oz pur e alcohol) per week Interpersonal Safety Answer Date Record ed Physical Abuse 05/22/2024 Verbal Abuse 05/22/2024 Sex and Gender Information Value Date Recorded Sex Assigned at Male 03/15/2024 3:40 PM EST Legal Sex Male 12:08 PM EST Gender Identity Male 03/15/2024 3:40 PM EST Sexual Orientation Straight 03/15/2024 3: 40 PM EST Obstetrics History Last Filed Vital Signs Vital Sign Reading Time Taken Comments Blood Pressure 99/71 05/22/2024 9:01 AM EST Pulse 87 05/22/2024 9:01 AM EST Temperature 35.7 ??C (96.3 ??F) 05/22/2024 7:56 AM ES T Respiratory Rate 14 05/22/2024 9:01 AM EST Oxygen Saturation 98% 05/22/2024 9:01 AM EST Inhaled Oxygen Concentration - - Weight 122 kg (268 lb) 05/22/2024 7:56 AM EST Height 188 cm (6' 2 ) 05/22/2024 7:56 AM EST Body Mass Index 34.41 05/22/2024 7:56 AM EST Plan of Treatment Health Maintenance Due Date Last Done Comments DTaP,Tdap,and Td Vaccines (1 - Tdap) 02/14/1992 Hepatitis B Vaccines (1 of 3 - 19+ 3-dose series) 02/14/1992 Depression Screening 03/28/2022 HIV Screening 03/28/2022 Hepatitis C Screening 03/28/2022 Hypertension/CHF/CAD Annual BMP Blood Test 03/28/2022 07/05/2020 Social Influencers of Health Screening 03/28/2022 Pneumococcal Vaccine: 50+ Years (1 of 1 - PCV) 2023 Zoster Vaccines (1 of 2) 2023 COVID-19 Vaccine (2023-2 5 season) 2023 Influenza Vaccine (Season Ended) 2024 Cholesterol Screening (Lipid Panel) 12/27/2028 12/28/2023, 12/28/2023 Colorectal Cancer Screening: Colonoscopy 05/22/2034 05/22/2024 HIB Vaccines Aged Out No longer eligi ble based on patient's age to complete this topic HPV Vaccines Aged Out No longer eligi ble based on patient's age to complete this topic Hepatitis A Vaccines Aged Out No long er eligible based on patient's age to complete this topic IPV Vaccines Aged Out No longer eligi ble based on patient's age to complete this topic MMR Vaccines Aged Out No longer eligi ble based on patient's age to complete this topic Meningococcal ACWY Vaccine Aged Out N o longer eligible based on patient's age to complete this topic Meningococcal B Vaccine Aged Out No l onger eligible based on patient's age to complete this topic Pneumococcal Vaccine: Pediatrics (0 to 5 Years) and At-Risk Patients (6 to 64 Years) Aged Out No longer eligible b ased on patient's age to complete this topic RSV Immunization Patients Under 20 months Aged Out No longer eligible b ased on patient's age to complete this topic Varicella Vaccines Aged Out No longer eligible based on patient's age to complete this topic Procedures Procedure Name Priority Date/Time Associated Diagnosis Comments COLONOSCOPY Routine 05/22/2024 8:42 AM EST History of colon polyps LIPID PANEL Routine 12/28/2023 ANNUAL BMP BLOOD TEST Routine 07/05/2020 from Last 3 Months or Most Recently Relevant to Health Maintenance Results * COLONOSCOPY Anesthesia - MAC; [facility] ENDOSCOPY (05/22/2024 8:42 AM EST) Anatomical Region Laterality Modality Endoscopy 05/22/2024 8:27 AM EST Impressions 05/22/2024 8:43 AM EST - Diverticulosis in the entire examined colon. ? - The examination was otherwise normal on direct and ? retroflexion views. ? - No specimens collected. Recommendation: ?- Patient has a contact number available for ? emergencies. The signs and symptoms of potential ? delayed complications were discussed with the patient. ? Return to normal activities tomorrow. Written ? discharge instructions were provided to the patient. ? - Resume previous diet. ? - Continue present medications. ? - Repeat colonoscopy in 5-10 years for surveillance. Narrative 05/22/2024 8:[address] [facility] GI Patient Name: Inocencio Horta Procedure Date: 05/22/2024 8:27 AM Date of : 1975 Age: 49 Gender: Male Note Status: Finalized Attending MD: Haider Georges MD, Procedure Date No Time: 05/22/2024 Procedure: ? Colonoscopy Indications: ? High risk colon cancer surveillance: Personal history ? of colonic polyps Providers: ? Haider Georges MD Referring MD: ?Haider Georges MD Medicines: ? Monitored Anesthesia Care Complications: ? No immediate complications. Estimated Blood Loss: ? Estimated blood loss: none. Procedure: ? After I obtained informed consent, the scope was ? passed under direct vision. Throughout the procedure, ? the patient's blood pressure, pulse, and oxygen ? saturations were monitored continuously. The ? Colonoscope was introduced through the anus and ? advanced to the cecum, identified by appendiceal ? orifice and ileocecal valve. The colonoscopy was ? performed without difficulty. The patient tolerated ? the procedure well. The quality of the bowel ? preparation was good. Findings: ?A few medium-mouthed diverticula were found in the ? entire colon. ? The exam was otherwise without abnormality on direct ? and retroflexion views. Procedure Code(s): ? --- Professional --- ? G0105, Colorectal cancer screening; colonoscopy on ? individual at high risk Diagnosis Code(s): ? --- Professional --- ? Z86.010, Personal history of colonic polyps ? K57.30, Diverticulosis of large intestine without ? perforation or abscess without bleeding CPT copyright 2020 [employer]. All rights reserved. The codes documented in this report are preliminary and upon glue clamp operator review may be revised to meet current compliance requirements. MD Haider Herrera MD 05/22/2024 8:43:28 AM This report has been signed electronically.Haider Georges MD Number of Addenda: 0 Note Initiated On: 05/22/2024 8:27 AM Scope In: Scope Out: ? Endoscopy Department at [facility] - [address] [place] [address], ? [place] [address] Procedure Note Haider Georges MD - 05/22/2024 [facility] Patient Name: Inocencio Horta Procedure Date: 05/22/2024 8:27 AM Date of : 1975 Age: 49 Gender: Male Note Status: Finalized Attending MD: Haider Georges MD, Procedure Date No Time: 05/22/2024 Procedure: Colonoscopy Indications: High risk colon cancer surveillance: Personalhistory of colonic polyps Providers: Haider Georges MD Referring MD: Haider Georges MD Medicines: Monitored Anesthesia Care Complications: No immediate complications. Estimated Blood Loss: Estimated blood loss: none. Procedure: After I obtained informed consent, the scope was passed under direct vision. Throughout theprocedure, the patient's blood pressure, pulse, and oxygen saturations were monitored continuously. The Colonoscope was introduced through the anus and advanced to the cecum, identified by appendiceal orifice and ileocecal valve. The colonoscopy was performed without difficulty. The patient tolerated the procedure well. The quality of the bowel preparation was good. Findings: A few medium-mouthed diverticula were found in the entire colon. The exam was otherwise without abnormality ondirect and retroflexion views. Procedure Code(s): --- Professional --- G0105, Colorectal cancer screening; colonoscopy on individual at high risk Diagnosis Code(s): --- Professional --- Z86.010, Personal history of colonic polyps K57.30, Diverticulosis of large intestine without perforation or abscess without bleeding CPT copyright 2020 [employer]. All rights reserved. The codes documented in this report are preliminary and upon glue clamp operator reviewmay be revised to meet current compliance requirements. MD Haider Herrera MD 05/22/2024 8:43:28 AM This report has been signed electronically.Haider Georges MD Number of Addenda: 0 Note Initiated On: 05/22/2024 8:27 AM Scope In: Scope Out: Endoscopy Department at [facility] - [address] [place] [id number] IMPRESSION: - Diverticulosis in the entire examined colon. - The examination was otherwise normal on directand retroflexion views. - No specimens collected. Recommendation: - Patient has a contact number available for emergencies. The signs and symptoms of potential delayed complications were discussed with thepatient. Return to normal activities tomorrow. Written discharge instructions were provided to thepatient. - Resume previous diet. - Continue present medications. - Repeat colonoscopy in 5-10 years forsurveillance. Haider Georges MD GI~PROCEDURE ORDERABLES Final R esult * (ABNORMAL) Lipid panel (12/28/2023) Pathologist [facility] LDL/HDL Ratio 2 0 - 4 Triglycerides 206(A) 0 - 150 mg/dL Cholesterol 229(A) 0 - 200 mg/dL HDL 116 >=40 mg/dL LDL Cholesterol 72 0 - 100 mg/dL Blood Venous blood specimen / Unknown Historical Provider LAB BLOOD ORDERABLES Lucille l Result * Annual BMP Blood Test (07/05/2020) Pathologist [facility] Annual BMP Blood Test abstracted Historical Provider HEALTH MAINTENANCE Final Result from Last 3 Months or Most Recently Relevant to Health Maintenance [place] [id number] [employer] Care Teams Business Office Director Relationship Specialty Start Date End Date Keven Silver MD [address] [place] [address] PCP - General Internal Medicine 03/06/24
--- OUTSIDE RECORDS SUMMARY | 2024-08-30 15:46 | XMS_ITS | Clinical Summary ---
Author Organization [facility] Address [address] [place] [address] Care Team Providers Care Twill Cutter Name Role Phone Keven Silver MD Primary Care Provider + [phone] Allergies No known active allergies Medications Medication Sig Dispensed Refills Start Date End Date Status allopurinol (ZYLOPRIM) 300 MG tablet Take 300 mg by mouth daily. 0 12/04/2021 Active carvedilol (COREG) 25 MG tablet Take 25 mg by mouth 2 (two) times a day. 0 11/20/2021 Active colchicine 0.6 MG tablet Take 0.6 mg by mouth daily. 0 11/25/2021 Active gabapentin (NEURONTIN) 100 MG capsule Take 100 mg by mouth 3 (three) times a day. 0 09/26/2021 Active indomethacin (INDOCIN) 25 MG capsule Take 25 mg by mouth 2 (two) times a day. 0 12/04/2021 Active Insulin Glargine (Basaglar KwikPen) 100 UNIT/ML SOPN ADMINISTER 20 UNITS UNDER THE SKIN EVERY DAY 0 11/12/2021 Active metFORMIN (GLUCOPHAGE) tablet 500 mg Take 500 mg by mouth daily. 0 11/12/2021 Active predniSONE (DELTASONE) tablet 20 mg Take 1 tablet by mouth daily. 0 10/15/2021 Active rosuvastatin (CRESTOR) tablet 40 mg 0 12/05/2021 Active Ozempic, 0.25 or 0.5 MG/DOSE, 2 MG/1.5ML SOPN INJECT 0.5 MG UNDER THE SKIN ONCE WEEKLY 0 11/24/2021 Active spironolactone (ALDACTONE) tablet 25 mg TAKE 1/2 TABLET BY MOUTH DAILY 0 11/20/2021 Active FeroSul 325 (65 Fe) MG tablet TAKE 1 TABLET BY MOUTH EVERY OTHER DAY 45 tablet 3 08/23/2023 Active folic acid (FOLVITE) tablet 1 mg TAKE 1 TABLET(1 MG) BY MOUTH DAILY 90 tablet 3 01/10/2024 Active Active Problems Problem Noted Date Diagnosed Date Absolute anemia 12/12/2021 Elevated homocysteine 12/12/2021 Low folate 12/12/2021 Acute idiopathic gout of multiple sites 12/13/19 22 Family History Medical History Relation Name Comments Diabetes Father Relation Name Status Comments Father Social History Tobacco Use Types Packs/Day Years Used Date Smoking Tobacco: Never Smokeless Tobacco: Never Alcohol Use Standard Drinks/Week Comments Yes 0 (1 standard drink = 0.6 oz pur e alcohol) socially Sex and Gender Information Value Date Recorded Sex Assigned at Not on file Gender Identity Not on file Sexual Orientation Not on file Job Start Date Occupation Industry Not on file Not on file Not on file Last Filed Vital Signs Vital Sign Reading Time Taken Comments Blood Pressure 134/85 12/12/2021 1:09 PM EDT Pulse 92 12/12/2021 1:09 PM EDT Temperature 36.6 ??C (97.8 ??F) 12/12/2021 1:09 PM ED T Respiratory Rate - - Oxygen Saturation 98% 12/12/2021 1:09 PM EDT Inhaled Oxygen Concentration - - Weight 121.7 kg (268 lb 6.4 oz) 12/12/2021 1:09 PM EDT Height 185.4 cm (6' 1 ) 12/12/2021 1:09 PM EDT Body Mass Index 35.41 12/12/2021 1:09 PM EDT Plan of Treatment Health Maintenance Due Date Last Done Comments Hepatitis B Vaccines (1 of 3 - 3-dose series) 1975 Hepatitis C Screening 1975 COVID-19 Vaccine (#1) 1975 Depression Screening 1985 Preventative Health Evaluation 1991 DTap / Tdap / Td (1 - Tdap) 02/14/1992 Colon Cancer Screening (Colonoscopy) 2018 Shingrix-Zoster Vaccine (1 of 2) 2023 Influenza Vaccine (#1) 2023 Pneumococcal Vaccine Aged Out No long er eligible based on patient's age to complete this topic RSV Ped < 20 months Aged Out No longe r eligible based on patient's age to complete this topic Care Teams Twill Cutter Relationship Specialty Start Date End Date Keven Silver MD [address] [address] PCP - General Internal Medicine 10/02/21
--- OUTSIDE RECORDS SUMMARY | 2024-08-30 15:46 | XMS_ITS | Continuity of Care Document ---
Author Organization [facility] [address] [place] [address] Phone [phone] Care Team Providers Care Food Service Lead Name Role Phone Keven Silver M.D. Care Team Information Recei lashaun [phone] Problems Active Problems Provider Date Essential hypertension Prem Duron M.D. O nset: 06/27/2024 Type 2 diabetes mellitus Prem Duron M.D. Onset: 06/27/2024 Hypercholesterolemia Prem Duron M.D. Ons et: 06/27/2024 Anemia Prem Duron M.D. Onset: 0 06/27/2024 Social History Type Date Description Comments Sex Unknown Lives With Spouse ETOH Use Occasionally consumes alcoho l Tobacco Use Start: Unknown Patient has never smoked Allergies and adverse reactions Description No Known Drug Allergies Medications Active Medications SIG Qnty Indications Ordering Provider Date [id number] Tablets Take 1 Tablet By Mouth Every Day Keven Silver M.D. [id number] Tablets Take 1/2 Tablet By Mouth Daily Skip Mora M.D [id number] Tablets Take 1 Tablet By Mouth Twice Daily Skip Mora M.D Rosuvastatin [id number] Tablets Take 1 Tablet By Mouth Daily Skip Mora M.D Ecohimsnic94so Tablets Take 1 Tablet By Mouth Daily Keven Silver M.D. Colchicine0.6mg Tablets Take 1 Tablet By Mouth Daily Keven Silver M.D. Amlodipine Aofuxigo8bj Tablets Take 1 Tablet By Mouth Daily Keven Silver M.D. Ozempic (0.25 Or 0.5 MG/Dose)2mg/3ML Solution Pen-Inject Inject 0.5MG Under The Skin Every Week Keven Silver M.D. Xdzvqjuni08so Tablets Take 1 Tablet By Mouth Daily Noe Koroma MD Vital Signs Date Vital Result Comment 06/28/2024 2:06pm BP Systolic 110 mmHg BP Diastolic 70 mmHg Heart Rate 72 /min Height 74 inches 6'2 Weight 268.00 lb BMI (Body Mass Index) 34.4 kg/m2 Results Test Acquired Date Facility Test Result H/L Range N ote Glucose Fingerstick 06/28/2024 Inhouse Glucose Fingerstick 130 Medical Devices Description No Information Available Encounters Type Date Location Provider Dx Diagnosis Office Visit 06/28/2024 1:45p Main Office Prem Duron M.D. E11.8 Type 2 diabetes mellitus with unspecified complications Assessments Date Code Description Provider 06/28/2024 E11.8 Complication due to diabetes mellitus Prem Duron M.D. Plan of Treatment Future Appointment(s):* 11/21/2024 4:00 pm - Prem Duron M.D. at Main Office 06/28/2024 - Prem Duron M.D.* E11.8 Complication due to diabetes mellitus Functional Status Description No Information Available Mental Status Description No Information Available Referrals Description No Information Available
[2024-08-30 18:31] LABS: Anion Gap 14 (12-20); Blood Urea Nitrogen 29 mg/dL (9-16); Carbon Dioxide 17 mmol/L (22-29); Chloride 107 mmol/L (96-108); Estimated Glomerular Filt Rate 57; Potassium 4.3 mmol/L (3.3-5.1); Sodium 134 mmol/L (135-145)
[2024-08-30 18:58] LABS: Creatinine Urine 77.03 mg/dL; Protein/Creatinine Ratio, Ur 0.16 (<0.2); Total Protein Urine Random 12 mg/dL (<12)
== END 2024-08-30 15:44 | disposition home or self-care (01) ==
LOC: HO.HKASLDS 15:43
PROVIDERS: Visit Provider Internal Medicine Nephrology
DX: N18.31 Chronic kidney disease, stage 3a (principal); E79.0 Hyperuricemia without signs of inflammatory arthritis and tophaceous disease; E11.21 Type 2 diabetes mellitus with diabetic nephropathy; I10 Essential (primary) hypertension
CPT/HCPCS: 36415; 80051; 82565; 82570; 84156; 84520

== ENCOUNTER 2024-08-31 15:58 | Outpatient (AMB) | payer OTHER, SELFPAY ==
--- NOTE | 2024-08-31 16:06 | HO.NEPHOV_ITS ---
Vital Signs 08/31/24 16:07 Height 6 ft 2 in Weight 272 lb 6 oz BMI 35.0 BP 110/70 Blood Pressure Location Lt brachial Position Sitting Pulse 89 Pulse Source Pulse Oximeter Pulse Oximetry (%) 97 Oxygen Delivery Method Room Air Intake Visit Reasons: 4mon follow-up w/labs-LVM Metal Extrusion Supervisor Required: No Accompanied by: Self / Same As Patient Allergies No Known Allergies Allergy (Verified 08/31/24 16:06) HPI Comments Details: Chadd was seen in follow-up of his chronic kidney disease and hypertension. He had high blood sugars for a long time but is better control now. His blood pressure has been at goal. He is on Ozempic. He has history of congestive heart failure but denies any coronary artery disease, CVA, PVD or ADRIAN. He is known to have proteinuria. He has history of gout and is on medications which is keeping it under good control. He denies any chest pain, shortness of breath, paroxysmal nocturnal dyspnea, orthopnea, pedal edema or orthostatic symptoms. He claims to be compliant with his medications. He avoids nonsteroidal anti-inflammatories. He is on ACEI. There were no other new active complaints at the time of this office visit. [facility] Medical History (Updated 11/11/23 @ 15:35 by Ga Liu MD) Rupture quadriceps tendon Surgical History History of surgery on lower extremity History of hand surgery History of surgical removal of meniscus of knee Family History Father Diabetes Social History Alcohol intake: current Patient Tobacco Use Status: Never used Tobacco Review of Systems Const All systems reviewed & are unremarkable except as noted in HPI and below Physical Exam Vital Signs: Last Vital Signs Pulse 89 08/31/24 16:07 BP 110/70 08/31/24 16:07 Pulse Ox 97 08/31/24 16:07 Oxygen Delivery Method Room Air 08/31/24 16:07 BMI result Body Mass Index 35.0 Const General: comfortable and no acute distress Orientation/consciousness: patient oriented x3 HEENT Head: Yes normocephalic Mouth: Normal oral and palatal mucosa present Eyes EOM: EOMs intact bilaterally Neck Neck: Yes supple Resp Auscultation: clear to auscultation bilaterally Cardio Jugular venous distension: no JVD Rate: regular rate GI Palpation (GI): Soft to palpation Auscultation: normal bowel sounds General: Yes no CVA tenderness Back/Spine/Pelvis Back: no CVA tenderness Skin General skin exam: no rashes or lesions noted Neuro General: patient oriented x3 and moves all extremities Extrem General: Yes no pedal edema Results Reviewed Nephrology Results: Hgb 11.5 g/dl (14.0-18.0) L 08/03/23 WBC 5.9 X10*3/uL (4.8-10.8) 08/03/23 Plt Count 194 X10*3/uL (160-400) 08/03/23 Sodium 134 mmol/L (135-145) L 08/30/24 Potassium 4.3 mmol/L (3.3-5.1) 08/30/24 Chloride 107 mmol/L (96-108) 08/30/24 Carbon Dioxide 17 mmol/L (22-29) L 08/30/24 BUN 29 mg/dL (9-16) H 08/30/24 Creatinine 1.33 mg/dL (0.5-1.4) 08/30/24 Calcium 9.6 mg/dL (8.4-10.2) 08/03/23 Urine Creatinine 77.03 mg/dL 08/30/24 Protein/Creatinin Ratio 0.16 (<0.2) 08/30/24 Assessment & Plan Assessment & Plan (1) CKD stage 3a, GFR 45-59 ml/min: Code(s): N18.31 - Chronic kidney disease, stage 3a Category: Medical (2) Hyperuricemia: Code(s): E79.0 - Hyperuricemia without signs of inflammatory arthritis and tophaceous disease Category: Medical (3) Diabetic nephropathy: Code(s): E11.21 - Type 2 diabetes mellitus with diabetic nephropathy Category: Medical Qualifiers: Diabetes mellitus type: type 2 Qualified Code(s): E11.21 - Type 2 diabetes mellitus with diabetic nephropathy (4) Hypertension: Code(s): I10 - Essential (primary) hypertension Category: Medical Qualifiers: Hypertension type: primary hypertension Qualified Code(s): I10 - Essential (primary) hypertension Plan 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 His proteinuria is undetectable. He is on ACEI. He denies any retinopathy. His blood pressure is better controlled. He needs to lose more weight. He is on spironolactone. He is on Jardiance 10 mg daily. His renal functions had been stable. He maintains good hydration and avoids nonsteroidal anti-inflammatories. Answered all questions. Follow-up appointment given. Orders: Orders Creatinine 6 Months E11.21 - Type 2 diabetes mellitus with diabetic nephropathy, E79.0 - Hyperuricemia without signs of inflammatory arthritis and tophaceous disease, I10 - Essential (primary) hypertension, N18.31 - Chronic kidney disease, stage 3a Blood Urea Nitrogen 6 Months E11.21 - Type 2 diabetes mellitus with diabetic nephropathy, E79.0 - Hyperuricemia without signs of inflammatory arthritis and tophaceous disease, I10 - Essential (primary) hypertension, N18.31 - Chronic kidney disease, stage 3a Electrolytes 6 Months E11.21 - Type 2 diabetes mellitus with diabetic nephropathy, E79.0 - Hyperuricemia without signs of inflammatory arthritis and tophaceous disease, I10 - Essential (primary) hypertension, N18.31 - Chronic kidney disease, stage 3a Protein Creatinine Ratio, Ur 6 Months E11.21 - Type 2 diabetes mellitus with diabetic nephropathy, E79.0 - Hyperuricemia without signs of inflammatory arthritis and tophaceous disease, I10 - Essential (primary) hypertension, N18.31 - Chronic kidney disease, stage 3a Coding Level of Care Code Est Pt Level 4 (78707) Diagnoses CKD stage 3a, GFR 45-59 ml/min N18.31 Hyperuricemia E79.0 Diabetic nephropathy associated with type 2 diabetes mellitus E11.21 Diabetes mellitus type: type 2 Primary hypertension I10 Hypertension type: primary hypertension
[2024-08-31 16:07] VITALS: BP 110/70; PULSE 89; O2SAT 97; BMI 35.0
== END 2024-08-31 16:34 | disposition home or self-care (01) ==
LOC: HO.HKAS 15:59
PROVIDERS: Visit Provider Internal Medicine Nephrology
DX: N18.31 Chronic kidney disease, stage 3a (principal); E79.0 Hyperuricemia without signs of inflammatory arthritis and tophaceous disease; E11.21 Type 2 diabetes mellitus with diabetic nephropathy; I10 Essential (primary) hypertension
CPT/HCPCS: 99214

== ENCOUNTER 2025-03-09 13:09 | Outpatient (REF) | payer OTHER, SELFPAY ==
--- OUTSIDE RECORDS SUMMARY | 2025-03-09 13:29 | XMS_ITS | Clinical Summary ---
Author Organization [facility] Address [address] [place] [address] Phone Care Team Providers Care Cigar Packer And Picker Name Role Phone Keven Silver MD Primary Care Provider + [phone] Allergies No known active allergies Medications allopurinoL [...] total) by mouth every other day. Active lisinopriL (PRINIVIL,ZESTRIL ) 10 mg tablet [...] TWICE DAILY 180 tablet 3 5 Active rosuvastatin (CRESTOR) 20 mg tablet Take 1 tablet (20 mg total) by mouth 1 (one) time each day. 90 tablet 1 5 Active spironolactone (ALDACTONE) 25 mg tablet TAKE 1/2 TABLET BY MOUTH DAILY 45 tablet 1 5 Active Active Problems Problem Noted Date Diagnosed Date Congestive heart failure ([facility] V24, [facility] V 28) 07/01/2020 Overview (01/25/2024): Congestive heart failure Hypertension 07/01/2020 Overview (01/25/2024): Last Assessment & Plan: Controlled, continue current regimen. Hyperlipidemia 07/01/2020 Overview (01/25/2024): Last Assessment & Plan: Last lipid panel 10/08 total cholesterol 171, HDL 65, LDL 80. Continue statin. Nonischemic cardiomyopathy ([facility] V24, [facility] V28) 03/26/2020 Overview (01/25/2024): Last Assessment & [...] History Medical History Date Comments Adrenal nodule ([facility] V24) PETER (acute kidney injury) ([facility] V24) Bilateral foot pain Bilateral knee pain Chest pain Covid-19 02/2021 Diabetes ([facility] V24, [facility] V28) Contraindication to deep vein thrombosis (DVT) p rophylaxis Gout Morbid obesity ([facility] V24, [facility] V28) Hyperlipidemia Hypertension Family History Medical History [...] Safety Answer Date Record ed Physical Abuse Unrecognized value 05/22/2024 Verbal Abuse Unrecognized value 05/22/2024 Sex and Gender Information Value Date [...] 87 05/22/2024 9:01 AM EST Temperature 35.7 C (96.3 F) 05/22/2024 7:56 AM EST Respiratory Rate 14 05/22/2024 9:01 AM EST [...] of 3 - 19+ 3-dose series) 02/14/1992 HIV Screening 03/28/2022 Hepatitis C Screening 03/28/2022 Hypertension/CHF/CAD Annual BMP Blood Test 03/28/2022 07/05/2020 Social Influencers of Health Screening 03/28/2022 Pneumococcal Vaccine: 50+ Years (1 of 1 - PCV) 2023 RSV Immunization Adult Patients (1 - Risk 50-74 years 1-dose series) 2023 Zoster Vaccines (1 of 2) 2023 Depression Screening 04/19/2024 COVID-19 Vaccine (1 - 2024-2 6 season) 2024 Influenza Vaccine (#1) 2024 Cholesterol Screening (Lipid Panel) 12/27/2028 12/28/2023, [...] Maintenance Results * COLONOSCOPY Anesthesia - MAC; SP ENDOSCOPY (05/22/2024 8:42 AM EST) Anatomical Region Laterality Modality Endoscopy 05/22/2024 8:27 AM EST Impressions 05/22/2024 8:43 AM EST - Diverticulosis in the entire examined colon. - The examination was otherwise normal on direct and retroflexion views. - No specimens collected. Recommendation: - Patient has a contact number available for emergencies. The signs and symptoms of potential delayed complications were discussed with the patient. Return to normal activities tomorrow. Written discharge instructions were provided to the patient. - Resume previous diet. - Continue present medications. - Repeat colonoscopy in 5-10 years for surveillance. Narrative 05/22/2024 8:43 AM EST [facility] GI Patient Name: Inocencio Horta Procedure Date: 05/22/2024 8:27 AM Date of : 1975 Age: 49 Gender: Male Note Status: Finalized Attending MD: Haider Georges MD, Procedure Date No Time: 05/22/2024 Procedure: Colonoscopy Indications: High risk colon cancer surveillance: Personal history of colonic polyps Providers: Haider Georges MD Referring MD: Haider Georges MD Medicines: Monitored Anesthesia Care Complications: No immediate complications. Estimated Blood Loss: Estimated blood loss: none. Procedure: After I obtained informed consent, the scope was passed under direct vision. Throughout the procedure, the patient's blood pressure, pulse, and oxygen [...] colon. The exam was otherwise without abnormality on direct and retroflexion views. Procedure Code(s): --- Professional --- G0105, Colorectal cancer screening; colonoscopy on individual at high risk Diagnosis Code(s): --- Professional --- Z86.010, Personal history of colonic polyps K57.30, Diverticulosis of large intestine without perforation or abscess without bleeding CPT copyright 1 [employer]. All rights reserved. The codes documented in this report are preliminary and upon nibbler operator review may be revised to meet current compliance requirements. MD Haider Herrera MD 05/22/2024 8:43:28 AM This report has been signed electronically.Haider Georges MD Number of Addenda: 0 Note Initiated On: 05/22/2024 8:27 AM Scope In: Scope Out: Endoscopy Department at [facility] - [address] [place] [id number] Procedure Note Haider Georges MD - 05/22/2024 [facility] GI Patient Name: Inocencio Horta Procedure Date: 05/22/2024 8:27 AM Date of : 1975 Age: 49 Gender: Male Note Status: Finalized Attending MD: Haider Geroges MD, Procedure Date No Time: 05/22/2024 Procedure: [...] or abscess without bleeding CPT copyright 2020 [employer]. All rights reserved. The codes documented in this report are preliminary and upon nibbler operator reviewmay be revised to meet current compliance requirements. MD Haider Herrera MD 05/22/2024 8:43:28 AM This report has been signed electronically.Haider Georges MD Number of Addenda: 0 Note Initiated On: 05/22/2024 8:27 AM Scope In: Scope Out: Endoscopy Department at [facility] - [address] [place] [phone] IMPRESSION: - Diverticulosis in the entire examined [...] medications. - Repeat colonoscopy in 5-10 years [facility]. Haider Georges MD GI~PROCEDURE ORDERABLES Final R esult * (ABNORMAL) Lipid panel (12/28/2023) LDL/HDL Ratio 2 0 - 4 Triglycerides 206(A) 0 - 150 mg/dL Cholesterol 229(A) 0 - 200 mg/dL HDL 116 >=40 mg/dL LDL Cholesterol 72 0 - 100 mg/dL Blood Venous blood specimen / Unknown Result [facility] Historical Provider LAB BLOOD ORDERABLES Lucille l Result * Annual BMP Blood Test (07/05/2020) Pathologist [facility] Annual BMP Blood Test abstracted Historical Provider HEALTH MAINTENANCE Final Result from Last 3 Months or Most Recently Relevant to Health Maintenance Insurance [facility] [address] Care Teams Cigar Packer And Picker Relationship Specialty Start Date End Date Keven Silver MD [address] [place] [id number] PCP - General Internal Medicine 03/06/24
--- OUTSIDE RECORDS SUMMARY | 2025-03-09 13:29 | XMS_ITS | Clinical Summary ---
Author Organization [facility] Address [address] [address] Phone Care Team Providers Care Broadcast Director Operations Name Role Phone Keven Silver MD Primary Care Provider + [phone] Allergies No known active allergies Medications Basaglar [...] Diabetes: Visual Foot Exam 08/15/2024 Influenza Vaccine (#1) 2024 Insurance [employer] C[employer] Care Teams Broadcast Director Operations Relationship Specialty Start Date End Date Keven Silver MD [address] [place] [address] PCP - General Internal Medicine 07/17/21
--- OUTSIDE RECORDS SUMMARY | 2025-03-09 13:29 | XMS_ITS | Clinical Summary ---
Author Organization [facility] Address [address] [place] [address] Care Team Providers Care Automobile Radiator Mechanic Name Role Phone Keven Silver MD Primary Care Provider + [phone] Allergies No known active allergies Medications Medication [...] 92 12/12/2021 1:09 PM EDT Temperature 36.6 C (97.8 F) 12/12/2021 1:09 PM EDT Respiratory Rate - - Oxygen Saturation 98% [...] (1 of 2) 2023 Influenza Vaccine (#1) 2024 Pneumococcal Vaccine Aged Out No long er eligible based on patient's age to complete this topic RSV Ped < 20 months Aged Out No longe r eligible based on patient's age to complete this topic Care Teams Automobile Radiator Mechanic Relationship Specialty Start Date End Date Keven Silver MD [address] [id number] PCP - General Internal Medicine 10/02/21
--- OUTSIDE RECORDS SUMMARY | 2025-03-09 13:29 | XMS_ITS | Continuity of Care Document ---
Author Organization [facility] [address] [place] [address] Phone [phone] Care Team Providers Care Shellacker Name Role Phone Keven Silver M.D. Care Team Information Recei lashaun [phone] Problems Active Problems Provider Date Essential hypertension Prem Duron M.D. O nset: 06/27/2024 Type 2 diabetes mellitus Prem Duron M.D. Onset: 06/27/2024 Hypercholesterolemia Prem Duron M.D. Ons et: 06/27/2024 Anemia Prem Duron M.D. Onset: 0 06/27/2024 Social History Type Date Description Comments Sex Male Sex Unknown Lives With Spouse ETOH Use Occasionally consumes alcoho l Tobacco Use Start: Unknown Patient has never smoked Allergies and adverse reactions Description No Known Drug Allergies Medications Active Medications SIG Qnty Indications Ordering Provider Date Mounjaro7.5mg/0.5ML Solution Auto-Inject 1 injection every week 6ml Prem Duron M.D. 02/01/2025 Notuuuioopy340ek Tablets Take 1 Tablet By Mouth Every Day Keven Silver M.D. Nykmpnbhwxczoj70dw Tablets Take 1/2 Tablet By Mouth Daily Skip Mora M.D Cmazpurxwy28hi Tablets Take 1 Tablet By Mouth Twice Daily Skip Mora M.D Rosuvastatin Njrvmeb60nr Tablets Take 1 Tablet By Mouth Daily Skip Mora M.D Igzfpbmhqe41eo Tablets Take 1 Tablet By Mouth Daily Keven Silver M.D. Colchicine0.6mg Tablets Take 1 Tablet By Mouth Daily Keven Silver M.D. Amlodipine Wuhlljdn7te Tablets Take 1 Tablet By Mouth Daily Keven Silver M.D. Carjbmsli20du Tablets Take 1 Tablet By Mouth Daily Noe Koroma MD History Medications Ozempic (1 MG/Dose)4mg/3ML Solution Pen-Inject Inject 0.5MG Under The Skin Every Week 6ml Prem Duron M.D. 11/21/2024 - 11/21/2024 Tegcachd5oe/0.5ML Solution Auto-Inject 1 injection every week as directed 6ml Prem Duron M.D. 11/21/2024 - 02/01/2025 Vital Signs Date Vital Result Comment 11/21/2024 3:43pm BP Systolic 110 mmHg BP Diastolic 80 mmHg Heart Rate 72 /min Height 74 inches 6'2 Weight 268.00 lb BMI (Body Mass Index) 34.4 kg/m2 Results Test Acquired Date Facility Test Result H/L Range N ote Glucose Fingerstick 11/21/2024 Inhouse Glucose Fingerstick 148 Hemoglobin A1c 11/21/2024 Inhouse Hemoglobin A1c 6.9% Glucose Fingerstick 06/28/2024 Inhouse Glucose Fingerstick 130 Medical Devices Description No Information Available Encounters Type Date Location Provider Dx Diagnosis Office Visit 11/21/2024 4:00p Main Office Prem Duron M.D. R73.02 Impaired glucose tolerance (oral) E11.8 Type 2 diabetes cami itus with unspecified complications Assessments Date Code Description Provider 11/21/2024 R73.02 Impaired glucose tolerance ( oral) Prem Duron M.D. 11/21/2024 E11.8 Type 2 diabetes mellitus with unspecified complications Prem Duron M.D. Plan of Treatment Future Appointment(s):* 04/03/2025 3:15 pm - Prem Duron M.D. at Main Office 11/21/2024 - Prem Duron M.D.* R73.02 Impaired glucose tolerance (oral) * E11.8 Type 2 diabetes mellitus with unspecified complications * Functional Status Description No Information Available Mental Status Description No Information Available Referrals Description No Information Available
--- OUTSIDE RECORDS SUMMARY | 2025-03-09 13:29 | XMS_ITS | Encounter Summary ---
Author Organization [facility] Address [address] [place] [address] Phone Care Team Providers Care Airport Engineer Name Role Phone Keven Silver MD Primary Care Provider + [phone] Reason for Visit * Reason Comments Med Refill Encounter Details Date Type Department Care Team (Late st Contact Info) Description 05/10/2022 Refill [facility] [address] [place] [phone] Ga Liu MD [address] [place] [address] Social History Tobacco Use Types Packs/Day Years [...] on filedocumented in this encounter Care Teams Airport Engineer Relationship Specialty Start Date End Date Keven Silver MD [address] [place] [address] PCP - General Internal Medicine 07/17/21 documented as of this encounter
--- OUTSIDE RECORDS SUMMARY | 2025-03-09 13:29 | XMS_ITS | Encounter Summary ---
Author Organization [facility] Address [address] [place] [address] Phone Care Team Providers Care Pharmacist Technician Name Role Phone Keven Silver MD Primary Care Provider + [phone] Reason for Visit * Reason Comments Med Refill Encounter Details Date Type Department Care Team (Late st Contact Info) Description 09/12/2021 Refill [facility] [address] [place] [phone] Ga Liu MD [address] [place] [address] Social History Tobacco Use Types Packs/Day Years [...] on filedocumented in this encounter Care Teams Pharmacist Technician Relationship Specialty Start Date End Date Keven Silver MD [address] [place] [address] PCP - General Internal Medicine 07/17/21 documented as of this encounter
[2025-03-09 19:02] LABS: Protein/Creatinine Ratio, Ur 0.28 (<0.2); Total Protein Urine Random 13 mg/dL (<12)
[2025-03-09 19:03] LABS: Anion Gap 16 (12-20); Blood Urea Nitrogen 49 mg/dL (9-16); Carbon Dioxide 17 mmol/L (22-29); Chloride 109 mmol/L (96-108); Estimated Glomerular Filt Rate 35; Potassium 4.6 mmol/L (3.3-5.1); Sodium 137 mmol/L (135-145)
== END 2025-03-09 13:10 | disposition home or self-care (01) ==
LOC: HO.HKASLDS 13:09
PROVIDERS: PCP Internal Medicine; Visit Provider Internal Medicine Nephrology
DX: I12.9 Hypertensive chronic kidney disease with stage 1 through stage 4 chronic kidney disease, or unspecified chronic kidney disease (principal); E11.21 Type 2 diabetes mellitus with diabetic nephropathy; N18.31 Chronic kidney disease, stage 3a; E11.22 Type 2 diabetes mellitus with diabetic chronic kidney disease; E79.0 Hyperuricemia without signs of inflammatory arthritis and tophaceous disease
CPT/HCPCS: 36415; 80051; 82565; 82570; 84156; 84520

== ENCOUNTER 2025-03-13 15:51 | Outpatient (AMB) | payer OTHER, SELFPAY ==
--- NOTE | 2025-03-13 15:53 | HO.NEPHOV ---
Vital Signs 03/13/25 15:57 Height 6 ft 2 in Weight 259 lb 6 oz BMI 33.3 BP 100/62 Blood Pressure Location Lt brachial Position Sitting Pulse 81 Pulse Source Pulse Oximeter Pulse Oximetry (%) 100 Oxygen Delivery Method Room Air Intake Visit Reasons: 6mon follow-up w/labs-LVM Field Investigator Required: No Accompanied by: Self / Same As Patient Allergies No Known Allergies Allergy (Verified 03/13/25 15:57) HPI Comments Details: Chadd was seen in follow-up of his chronic kidney disease and hypertension. He had high blood sugars for a long time but is better control now. His blood pressure has been at goal. He is on Ozempic. He has history of congestive heart failure but denies any coronary artery disease, CVA, PVD or ADRIAN. He is known to have proteinuria. He has history of gout and is on medications which is keeping it under good control. He denies any chest pain, shortness of breath, paroxysmal nocturnal dyspnea, orthopnea, pedal edema or orthostatic symptoms. He claims to be compliant with his medications. He avoids nonsteroidal anti-inflammatories. He is on ACEI. There were no other new active complaints at the time of this office visit. His creatinine has gone up to 1.9 PFSH Medical History (Updated 03/13/25 @ 15:55 by Ga Liu MD) Rupture quadriceps tendon Surgical History History of surgery on lower extremity History of hand surgery History of surgical removal of meniscus of knee Family History Father Diabetes Social History Alcohol intake: current Patient Tobacco Use Status: Never used Tobacco Review of Systems Const All systems reviewed & are unremarkable except as noted in HPI and below Physical Exam Const General: comfortable and no acute distress Orientation/consciousness: patient oriented x3 HEENT Head: Yes normocephalic Mouth: Normal oral and palatal mucosa present Eyes EOM: EOMs intact bilaterally Neck Neck: Yes supple Resp Auscultation: clear to auscultation bilaterally Cardio Jugular venous distension: no JVD Rate: regular rate GI Palpation (GI): Soft to palpation Auscultation: normal bowel sounds General: Yes no CVA tenderness Back/Spine/Pelvis Back: no CVA tenderness Skin General skin exam: no rashes or lesions noted Neuro General: patient oriented x3 and moves all extremities Extrem General: Yes no pedal edema Results Reviewed Nephrology Results: Hgb, (14.0-18.0) 11.5 g/dl L 08/03/23 WBC, (4.8-10.8) 5.9 X10*3/uL 08/03/23 Plt Count, (160-400) 194 X10*3/uL 08/03/23 Sodium, (135-145) 137 mmol/L 03/09/25 Potassium, (3.3-5.1) 4.6 mmol/L 03/09/25 Chloride, (96-108) 109 mmol/L H 03/09/25 Carbon Dioxide, (22-29) 17 mmol/L L 03/09/25 BUN, (9-16) 49 mg/dL H 03/09/25 Creatinine, (0.5-1.4) 1.99 mg/dL H 03/09/25 Calcium, (8.4-10.2) 9.6 mg/dL 08/03/23 Urine Creatinine 46.31 mg/dL 03/09/25 Protein/Creatinin Ratio, (<0.2) 0.28 H 03/09/25 Assessment & Plan Assessment & Plan (1) PETER (acute kidney injury): Code(s): N17.9 - Acute kidney failure, unspecified Category: Medical (2) Hypertension: Code(s): I10 - Essential (primary) hypertension Category: Medical Qualifiers: Hypertension type: primary hypertension Qualified Code(s): I10 - Essential (primary) hypertension (3) CKD stage 3a, GFR 45-59 ml/min: Code(s): N18.31 - Chronic kidney disease, stage 3a Category: Medical (4) Hyperuricemia: Code(s): E79.0 - Hyperuricemia without signs of inflammatory arthritis and tophaceous disease Category: Medical Plan 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 His proteinuria is minimal . I reduced his lasix to 40 mg daily and reduced his lisinopril to 5 mg. He denies any retinopathy. His blood pressure is better controlled. He needs to lose more weight. He is on spironolactone. He can continue Jardiance 10 mg daily. He needs to maintain good hydration and avoids nonsteroidal anti-inflammatories. F/U labs ordered. Answered all questions. Follow-up appointment given. Orders: Orders Electrolytes 1 Month N17.9 - Acute kidney failure, unspecified, N18.31 - Chronic kidney disease, stage 3a Blood Urea Nitrogen 1 Month N17.9 - Acute kidney failure, unspecified, N18.31 - Chronic kidney disease, stage 3a Creatinine 1 Month N17.9 - Acute kidney failure, unspecified, N18.31 - Chronic kidney disease, stage 3a Coding Level of Care Code Est Pt Level 4 (34811) Diagnoses PETER (acute kidney injury) N17.9 Primary hypertension I10 Hypertension type: primary hypertension CKD stage 3a, GFR 45-59 ml/min N18.31 Hyperuricemia E79.0
[2025-03-13 15:57] VITALS: BP 100/62; PULSE 81; O2SAT 100; BMI 33.3
--- OUTSIDE RECORDS SUMMARY | 2025-03-13 19:19 | XMS_ITS | Continuity of Care Document ---
Author Organization [facility] [address] [place] [address] Phone [phone] Care Team Providers Care Naphthalene Still Operator Name Role Phone Keven Silver M.D. Care Team Information Recei lashaun [phone] Problems Active Problems Provider Date Essential hypertension [...] every week 6ml Prem Duron M.D. 02/01/2025 Ruewrizktxo087xj Tablets Take 1 Tablet By Mouth Every Day Keven Silver M.D. Nwvetedjowatwd20wh Tablets Take 1/2 Tablet By Mouth Daily Skip Mora M.D Lkzvctipxj82fq Tablets Take 1 Tablet By Mouth Twice Daily Skip Mora M.D Rosuvastatin Fogxuax24sq Tablets Take 1 Tablet By Mouth Daily Skip Mora M.D Juuvxcrgig47zx Tablets Take 1 Tablet By Mouth Daily eKven Silver M.D. Colchicine0.6mg Tablets Take 1 Tablet By Mouth Daily Keven Silver M.D. Amlodipine Kcukmmsz9gk Tablets Take 1 Tablet By Mouth Daily Keven Silver M.D. Kwlblvmqh56si Tablets Take 1 Tablet By Mouth Daily Noe Koroma MD History Medications Ozempic (1 MG/Dose)4mg/3ML Solution Pen-Inject Inject 0.5MG Under The Skin Every Week 6ml Prem Duron M.D. 11/21/2024 - 11/21/2024 Oyijpswx7kc/0.5ML Solution Auto-Inject 1 injection every week as [...]
--- OUTSIDE RECORDS SUMMARY | 2025-03-13 19:19 | XMS_ITS | Clinical Summary ---
Author Organization [facility] Address [address] [place] [address] Care Team Providers Care Mold Dumper Name Role Phone Keven Silver MD Primary Care Provider + [phone] Allergies No known active allergies Medications Medication [...] age to complete this topic Care Teams Mold Dumper Relationship Specialty Start Date End Date Keven Silver MD [address] [address] PCP - General Internal Medicine 10/02/21
--- OUTSIDE RECORDS SUMMARY | 2025-03-13 19:20 | XMS_ITS | Clinical Summary ---
Author Organization [facility] Address [address] [place] [address] Phone Care Team Providers Care Teacher Selection Specialist Name Role Phone Keven Silver MD Primary Care Provider + [phone] Allergies No known active allergies Medications allopurinoL [...] Noted Date Diagnosed Date Congestive heart failure ([facility] V24, [facility] V 28) 07/01/2020 Overview (01/25/2024): Congestive heart failure Hypertension 07/01/2020 Overview (01/25/2024): Last Assessment & Plan: Controlled, continue current regimen. Hyperlipidemia 07/01/2020 Overview (01/25/2024): Last Assessment & Plan: Last lipid panel 10/08 total cholesterol 171, HDL 65, LDL 80. Continue statin. Nonischemic cardiomyopathy ([facility] V24, [facility] V28) 03/26/2020 Overview (01/25/2024): Last Assessment [...] History Medical History Date Comments Adrenal nodule ([facility] V24) PETER (acute kidney injury) ([facility] V24) Bilateral foot pain Bilateral knee pain Chest pain Covid-19 02/2021 Diabetes ([facility] V24, [facility] V28) Contraindication to deep vein thrombosis (DVT) p rophylaxis Gout Morbid obesity ([facility] V24, [facility] V28) Hyperlipidemia Hypertension Family History Medical [...] for surveillance. Narrative 05/22/2024 8:43 AM EST [facility] GI Patient Name: Inocencio Horta Procedure [...] or abscess without bleeding CPT copyright 1 [employer]. All rights reserved. The codes documented in this report are preliminary and upon room cooler installer review may be revised to meet current compliance requirements. MD Haider Herrera MD 05/22/2024 8:43:28 AM This report has been signed electronically.Haider Georges MD Number of Addenda: 0 Note Initiated On: 05/22/2024 8:27 AM Scope In: Scope Out: Endoscopy Department at [facility] - [address] [place] [phone] Procedure Note Haider Georges MD - 05/22/2024 [facility] GI Patient Name: Inocencio Horta Procedure [...] or abscess without bleeding CPT copyright 2020 [employer]. All rights reserved. The codes documented in this report are preliminary and upon room cooler installer reviewmay be revised to meet current compliance requirements. MD Haider Herrera MD 05/22/2024 8:43:28 AM This report has been signed electronically.Haider Georges MD Number of Addenda: 0 Note Initiated On: 05/22/2024 8:27 AM Scope In: Scope Out: Endoscopy Department at [facility] - [address] [place] [phone] IMPRESSION: - Diverticulosis in the entire examined [...] medications. - Repeat colonoscopy in 5-10 years [facility]. Haider Georges MD GI~PROCEDURE ORDERABLES Final R esult * (ABNORMAL) Lipid panel (12/28/2023) LDL/HDL Ratio 2 0 - 4 Triglycerides 206(A) 0 - 150 mg/dL Cholesterol 229(A) 0 - 200 mg/dL HDL 116 >=40 mg/dL LDL Cholesterol 72 0 - 100 mg/dL Blood Venous blood specimen / Unknown Result [facility] Historical Provider LAB BLOOD ORDERABLES Lucille l Result * Annual BMP Blood Test (07/05/2020) Pathologist [facility] Annual BMP Blood Test abstracted Historical Provider HEALTH MAINTENANCE Final Result from Last 3 Months or Most Recently Relevant to Health Maintenance Insurance [facility] [address] Care Teams Teacher Selection Specialist Relationship Specialty Start Date End Date Keven Silver MD [address] [place] [address] PCP - General Internal Medicine 03/06/24
== END 2025-03-13 16:05 | disposition home or self-care (01) ==
LOC: HO.HKAS 15:51
PROVIDERS: Visit Provider Internal Medicine Nephrology
DX: N17.9 Acute kidney failure, unspecified (principal); I10 Essential (primary) hypertension; N18.31 Chronic kidney disease, stage 3a; E79.0 Hyperuricemia without signs of inflammatory arthritis and tophaceous disease
CPT/HCPCS: 99214

== ENCOUNTER 2025-04-09 14:54 | Outpatient (REF) | payer OTHER, SELFPAY ==
--- OUTSIDE RECORDS SUMMARY | 2025-04-09 18:11 | XMS_ITS | Encounter Summary ---
Author Organization [facility] Address [address] [place] [address] Phone Care Team Providers Care Travel Director Name Role Phone Keven Silver MD Primary Care Provider + [phone] Reason for Visit * Reason Comments Med Refill Encounter Details Date Type Department Care Team (Late st Contact Info) Description 09/12/2021 Refill [facility] [address] [place] [phone] Ga Liu MD [address] [place] [address] Social History Tobacco Use Types Packs/Day Years [...] on filedocumented in this encounter Care Teams Travel Director Relationship Specialty Start Date End Date Keven Silver MD [address] [place] [address] PCP - General Internal Medicine 07/17/21 documented as of this encounter
--- OUTSIDE RECORDS SUMMARY | 2025-04-09 18:11 | XMS_ITS | Clinical Summary ---
Author Organization [address] [place] [address] Address [address] [place] [address] Phone Care Team Providers Care Conference Assistant Name Role Phone Keven Silver MD Primary Care Provider + [phone] Allergies No known active allergies Medications allopurinoL [...] Noted Date Diagnosed Date Congestive heart failure 07/01/2020 Overview (01/25/2024): Congestive heart failure Hypertension 07/01/2020 Overview (01/25/2024): Last Assessment & Plan: Controlled, continue current regimen. Hyperlipidemia 07/01/2020 Overview (01/25/2024): Last Assessment & Plan: Last lipid panel 10/08 total cholesterol 171, HDL 65, LDL 80. Continue statin. Nonischemic cardiomyopathy 03/26/2020 Overview (01/25/2024): Last Assessment & Plan: [...] History Medical History Date Comments Adrenal nodule ([facility]/H[facility] V24) PETER (acute kidney injury) (CMS/HCC V24) Bilateral foot pain Bilateral knee pain Chest pain Covid-19 02/2021 Diabetes (CMS/HCC V24, CMS/HCC V28) Contraindication to deep vein thrombosis (DVT) p rophylaxis Gout Morbid obesity (CMS/HCC V24, CMS/HCC V28) Hyperlipidemia Hypertension Family History Medical History [...] Orientation Straight 03/15/2024 3: 40 PM EST Last Filed Vital Signs Vital Sign Reading [...] 2) 2023 Depression Screening 04/19/2024 COVID-19 Vaccine ( - 2024-2 6 season) 2024 Influenza Vaccine [...] Results * COLONOSCOPY Anesthesia - MAC; [facility] ENDOSCOPY (05/22/2024 8:42 AM EST) Anatomical Region [...] for surveillance. Narrative 05/22/2024 8:43 AM EST [facility] GI Patient Name: Inocencio Horta Procedure [...] or abscess without bleeding CPT copyright 2020 [employer]. All rights reserved. The codes documented in this report are preliminary and upon messenger floorperson review may be revised to meet current compliance requirements. MD Haider Herrera MD 05/22/2024 8:43:28 AM This report has been signed electronically.Haider Georges MD Number of Addenda: 0 Note Initiated On: 05/22/2024 8:27 AM Scope In: Scope Out: Endoscopy Department at [facility] - [address] [place] [phone] Procedure Note Haider Georges MD - 05/22/2024 [facility] GI Patient Name: Inocencio Horta Procedure [...] or abscess without bleeding CPT copyright 2020 [employer]. All rights reserved. The codes documented in this report are preliminary and upon messenger floorperson reviewmay be revised to meet current compliance requirements. MD Haider Herrera MD 05/22/2024 8:43:28 AM This report has been signed electronically.Haider Georges MD Number of Addenda: 0 Note Initiated On: 05/22/2024 8:27 AM Scope In: Scope Out: Endoscopy Department at [facility] - [address] [place] [phone] IMPRESSION: - Diverticulosis in the entire examined [...] Result * Annual BMP Blood Test (07/05/2020) Annual BMP Blood Test abstracted Historical Provider HEALTH MAINTENANCE Final Result from Last 3 Months or Most Recently Relevant to Health Maintenance [place] [address] [employer] Care Teams Conference Assistant Relationship Specialty Start Date End Date Keven Silver MD [address] [place] [address] PCP - General Internal Medicine 03/06/24
--- OUTSIDE RECORDS SUMMARY | 2025-04-09 18:11 | XMS_ITS | Encounter Summary ---
Author Organization [facility] Address [address] [place] [address] Phone Care Team Providers Care Plant Tender Name Role Phone Keven Silver MD Primary Care Provider + [phone] Reason for Visit * Reason Comments Med Refill Encounter Details Date Type Department Care Team (Late st Contact Info) Description 05/10/2022 Refill [facility] [address] [place] [phone] Ga Liu MD [address] [place] [address] Social History Tobacco Use Types Packs/Day Years [...] on filedocumented in this encounter Care Teams Plant Tender Relationship Specialty Start Date End Date Keven Silver MD [address] [place] [address] PCP - General Internal Medicine 07/17/21 documented as of this encounter
--- OUTSIDE RECORDS SUMMARY | 2025-04-09 18:11 | XMS_ITS | Clinical Summary ---
Author Organization [facility] Address [address] [address] Phone Care Team Providers Care Cad Designer Name Role Phone Keven Silver MD Primary Care Provider + [phone] Allergies No known active allergies Medications Basaglar [...] (#1) 2024 Insurance [employer] Care Teams Cad Designer Relationship Specialty Start Date End Date Keven Silver MD [address] [place] [address] PCP - General Internal Medicine 07/17/21
--- OUTSIDE RECORDS SUMMARY | 2025-04-09 18:11 | XMS_ITS | Clinical Summary ---
Author Organization [facility] Prior to 09/16/[address] [place] [address] Care Team Providers Care Playground Official Name Role Phone Keven Silver MD Primary Care Provider + [phone] Allergies No known active allergies Medications Medication [...] age to complete this topic Care Teams Playground Official Relationship Specialty Start Date End Date Keven Silver MD [address] [address] PCP - General Internal Medicine 10/02/21
--- OUTSIDE RECORDS SUMMARY | 2025-04-09 18:11 | XMS_ITS | Continuity of Care Document ---
Author Organization [facility] [address] [place] [address] Phone [phone] Care Team Providers Care Public Area Supervisor Name Role Phone Keven Silver M.D. Care Team Information Recei lashaun [phone] Problems Active Problems Provider Date Essential hypertension [...] every week 6ml Prem Duron M.D. 02/01/2025 Hlnqisrahlf534eb Tablets Take 1 Tablet By Mouth Every Day Keven Silver M.D. Kdtqtobnzznvcr81ab Tablets Take 1/2 Tablet By Mouth Daily Skip Mora M.D Vwodyzatqw86wr Tablets Take 1 Tablet By Mouth Once Daily Skip Mora M.D Rosuvastatin Ecwzyal65bh Tablets Take 1 Tablet By Mouth Daily Skip Mora M.D Goehwzcdbh19bl Tablets Take 1/2 Tablet B y Mouth Daily Keven Silver M.D. Colchicine0.6mg Tablets Take 1 Tablet By Mouth Daily Keven Silver M.D. Amlodipine Sygknzbs0ov Tablets Take 1 Tablet By Mouth Daily Keven Silver M.D. Ushxowzcq96bu Tablets Take 1 Tablet By Mouth Daily Noe Koroma MD Folic Omqs8uy Tablets 1 qd Keven Nichols M.D. History Medications Ozempic (1 MG/Dose)4mg/3ML Solution Pen-Inject Inject 0.5MG Under The Skin Every Week 6ml Prem Duron M.D. 11/21/2024 - 11/21/2024 Brrankwb8yj/0.5ML Solution Auto-Inject 1 injection every week as directed 6ml Prem Duron M.D. 11/21/2024 - 02/01/2025 Vital Signs Date Vital Result Comment 04/03/2025 3:27pm BP Systolic 120 mmHg BP Diastolic 70 mmHg Heart Rate 72 /min Height 74 inches 6'2 Weight 259.00 lb BMI (Body Mass Index) 33.2 kg/m2 Results Test Acquired Date Facility Test Result H/L Range N ote Glucose Fingerstick 04/03/2025 Inhouse Glucose Fingerstick 107 Glucose Fingerstick 11/21/2024 Inhouse Glucose Fingerstick 148 Hemoglobin A1c 11/21/2024 Inhouse Hemoglobin A1c 6.9% Glucose Fingerstick 06/28/2024 Inhouse Glucose Fingerstick 130 Medical Devices Description No Information Available Encounters Type Date Location Provider Dx Diagnosis Office Visit 04/03/2025 3:15p Main Office Prem Duron M.D. E11.8 Type 2 diabetes mellitus with unspecified complications Assessments Date Code Description Provider 04/03/2025 E11.8 Type 2 diabetes mellitus with unspecified complications Prem Duron M.D. Plan of Treatment Future Appointment(s):* 08/08/2025 2:45 pm - Prem Duron M.D. at Main Office 11/21/2024 - Prem Duron M.D.* R73.02 Impaired glucose tolerance (oral) * E11.8 Type 2 diabetes mellitus with unspecified complications * Functional Status Description No Information Available Mental Status Description No Information Available Referrals Description No Information Available
[2025-04-09 18:40] LABS: Anion Gap 15 (12-20); Blood Urea Nitrogen 22 mg/dL (9-16); Carbon Dioxide 18 mmol/L (22-29); Chloride 108 mmol/L (96-108); Estimated Glomerular Filt Rate 59; Potassium 4.4 mmol/L (3.3-5.1); Sodium 137 mmol/L (135-145)
== END 2025-04-09 14:55 | disposition home or self-care (01) ==
LOC: HO.HKASLDS 14:54
PROVIDERS: PCP Internal Medicine; Visit Provider Internal Medicine Nephrology
DX: N17.9 Acute kidney failure, unspecified (principal); N18.31 Chronic kidney disease, stage 3a
CPT/HCPCS: 36415; 80051; 82565; 84520

== ENCOUNTER 2025-04-17 15:58 | Outpatient (AMB) | payer OTHER, SELFPAY ==
[2025-04-17 16:14] VITALS: BP 108/60; PULSE 85; O2SAT 98; BMI 33.4
--- NOTE | 2025-04-17 16:14 | HO.NEPHOV ---
Vital Signs 04/17/25 16:14 Height 6 ft 2 in Weight 260 lb BMI 33.4 BP 108/60 Blood Pressure Location Lt brachial Position Sitting Pulse 85 Pulse Source Pulse Oximeter Pulse Oximetry (%) 98 Oxygen Delivery Method Room Air Intake Visit Reasons: 1mon f/u w/labs-LVM Clothing Presser Required: No Accompanied by: Self / Same As Patient Allergies No Known Allergies Allergy (Verified 04/17/25 16:16) HPI Comments Details: Chadd was seen in follow-up of his chronic kidney disease and hypertension. He had high blood sugars for a long time but is better control now. His blood pressure has been at goal. He is on Ozempic. He has history of congestive heart failure but denies any coronary artery disease, CVA, PVD or ADRIAN. He is known to have proteinuria. He has history of gout and is on medications which is keeping it under good control. He denies any chest pain, shortness of breath, paroxysmal nocturnal dyspnea, orthopnea, pedal edema or orthostatic symptoms. He claims to be compliant with his medications. He avoids nonsteroidal anti-inflammatories. He is on ACEI. There were no other new active complaints at the time of this office visit. His creatinine has gone back to baseline [facility] Medical History (Updated 03/13/25 @ 15:55 by Ga Liu MD) Rupture quadriceps tendon Surgical History History of surgery on lower extremity History of hand surgery History of surgical removal of meniscus of knee Family History Father Diabetes Social History Alcohol intake: current Patient Tobacco Use Status: Never used Tobacco Review of Systems Const All systems reviewed & are unremarkable except as noted in HPI and below Physical Exam Vital Signs: Last Vital Signs Pulse 85 04/17/25 16:14 BP 108/60 04/17/25 16:14 Pulse Ox 98 04/17/25 16:14 Oxygen Delivery Method Room Air 04/17/25 16:14 BMI result Body Mass Index 33.4 Const General: comfortable and no acute distress Orientation/consciousness: patient oriented x3 HEENT Head: Yes normocephalic Mouth: Normal oral and palatal mucosa present Eyes EOM: EOMs intact bilaterally Neck Neck: Yes supple Resp Auscultation: clear to auscultation bilaterally Cardio Jugular venous distension: no JVD Rate: regular rate GI Palpation (GI): Soft to palpation Auscultation: normal bowel sounds General: Yes no CVA tenderness Back/Spine/Pelvis Back: no CVA tenderness Skin General skin exam: no rashes or lesions noted Neuro General: patient oriented x3 and moves all extremities Extrem General: Yes no pedal edema Results Reviewed Nephrology Results: Sodium, (135-145) 137 mmol/L 04/09/25 Potassium, (3.3-5.1) 4.4 mmol/L 04/09/25 Chloride, (96-108) 108 mmol/L 04/09/25 Carbon Dioxide, (22-29) 18 mmol/L L 04/09/25 BUN, (9-16) 22 mg/dL H 04/09/25 Creatinine, (0.5-1.4) 1.28 mg/dL 04/09/25 Urine Creatinine 46.31 mg/dL 03/09/25 Protein/Creatinin Ratio, (<0.2) 0.28 H 03/09/25 Assessment & Plan Assessment & Plan (1) Hypertension: Code(s): I10 - Essential (primary) hypertension Category: Medical Qualifiers: Hypertension type: primary hypertension Qualified Code(s): I10 - Essential (primary) hypertension (2) Diabetic nephropathy: Code(s): E11.21 - Type 2 diabetes mellitus with diabetic nephropathy Category: Medical Qualifiers: Diabetes mellitus type: type 2 Qualified Code(s): E11.21 - Type 2 diabetes mellitus with diabetic nephropathy (3) Hyperuricemia: Code(s): E79.0 - Hyperuricemia without signs of inflammatory arthritis and tophaceous disease Category: Medical (4) CKD stage 3a, GFR 45-59 ml/min: Code(s): N18.31 - Chronic kidney disease, stage 3a Category: Medical Plan 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 His proteinuria is minimal . He can continue lasix 40 mg daily along with lisinopril 5 mg daily. He denies any retinopathy. His blood pressure is better controlled. He needs to lose more weight. He is on spironolactone. He can continue Jardiance 10 mg daily. He needs to maintain good hydration and avoids nonsteroidal anti-inflammatories. F/U labs ordered. Answered all questions. Follow-up appointment given. Orders: Orders Protein Creatinine Ratio, Ur 4 Months E11.21 - Type 2 diabetes mellitus with diabetic nephropathy, E79.0 - Hyperuricemia without signs of inflammatory arthritis and tophaceous disease, I10 - Essential (primary) hypertension, N18.31 - Chronic kidney disease, stage 3a Blood Urea Nitrogen 4 Months E11.21 - Type 2 diabetes mellitus with diabetic nephropathy, E79.0 - Hyperuricemia without signs of inflammatory arthritis and tophaceous disease, I10 - Essential (primary) hypertension, N18.31 - Chronic kidney disease, stage 3a Creatinine 4 Months E11.21 - Type 2 diabetes mellitus with diabetic nephropathy, E79.0 - Hyperuricemia without signs of inflammatory arthritis and tophaceous disease, I10 - Essential (primary) hypertension, N18.31 - Chronic kidney disease, stage 3a Electrolytes 4 Months E11.21 - Type 2 diabetes mellitus with diabetic nephropathy, E79.0 - Hyperuricemia without signs of inflammatory arthritis and tophaceous disease, I10 - Essential (primary) hypertension, N18.31 - Chronic kidney disease, stage 3a Coding Level of Care Code Est Pt Level 4 (14736) Diagnoses Primary hypertension I10 Hypertension type: primary hypertension Diabetic nephropathy associated with type 2 diabetes mellitus E11. Diabetes mellitus type: type 2 Hyperuricemia E79.0 CKD stage 3a, GFR 45-59 ml/min N18.31
--- OUTSIDE RECORDS SUMMARY | 2025-04-17 19:03 | XMS_ITS | Encounter Summary ---
Author Organization [facility] Address [address] [place] [address] Phone Care Team Providers Care County Program Technician Name Role Phone Keven Silver MD Primary Care Provider + [phone] Reason for Visit * Reason Comments Med Refill Encounter Details Date Type Department Care Team (Late st Contact Info) Description 09/12/2021 Refill [facility] [address] [place] [phone] Ga Liu MD [address] [place] [address] Social History Tobacco Use Types Packs/Day Years [...] on filedocumented in this encounter Care Teams County Program Technician Relationship Specialty Start Date End Date Keven Silver MD [address] [place] [address] PCP - General Internal Medicine 07/17/21 documented as of this encounter
--- OUTSIDE RECORDS SUMMARY | 2025-04-17 19:03 | XMS_ITS | Clinical Summary ---
Author Organization [facility] Address [address] [address] Phone Care Team Providers Care Supervisor Parking Lot Name Role Phone Keven Silver MD Primary Care Provider + [phone] Allergies No known active allergies Medications Basaglar [...] (#1) 2024 Insurance [employer] Care Teams Supervisor Parking Lot Relationship Specialty Start Date End Date Keven Silver MD [address] [place] [address] PCP - General Internal Medicine 07/17/21
--- OUTSIDE RECORDS SUMMARY | 2025-04-17 19:03 | XMS_ITS | Encounter Summary ---
Author Organization [facility] Address [address] [place] [address] Phone Care Team Providers Care Timber Supervisor Name Role Phone Keven Silver MD Primary Care Provider + [phone] Reason for Visit * Reason Comments Med Refill Encounter Details Date Type Department Care Team (Late st Contact Info) Description 05/10/2022 Refill [facility] [address] [place] [phone] Ga Liu MD [address] [place] [address] Social History Tobacco Use Types Packs/Day Years [...] on filedocumented in this encounter Care Teams Timber Supervisor Relationship Specialty Start Date End Date Keven Silver MD [address] [place] [address] PCP - General Internal Medicine 07/17/21 documented as of this encounter
--- OUTSIDE RECORDS SUMMARY | 2025-04-17 19:03 | XMS_ITS | Clinical Summary ---
Author Organization [facility] Prior to 09/16/[address] [place] [address] Care Team Providers Care Case Finishing Machine Adjuster Name Role Phone Keven Silver MD Primary Care Provider + [phone] Allergies No known active allergies Medications Medication [...] age to complete this topic Care Teams Case Finishing Machine Adjuster Relationship Specialty Start Date End Date Keven Silver MD [address] [address] PCP - General Internal Medicine 10/02/21
--- OUTSIDE RECORDS SUMMARY | 2025-04-17 19:03 | XMS_ITS | Clinical Summary ---
Author Organization [facility] Address [address] [place] [address] Phone Care Team Providers Care Digital Media Sales Consultant Name Role Phone Keven Silver MD Primary Care Provider + [phone] Allergies No known active allergies Medications allopurinoL [...] History Medical History Date Comments Adrenal nodule ([facility]/HCC V24) PETER (acute kidney injury) (CMS/HCC [...] Maintenance Results * COLONOSCOPY Anesthesia - MAC; [facility] ENDOSCOPY (05/22/2024 8:42 AM EST) [...] for surveillance. Narrative 05/22/2024 8:43 AM EST GI Patient Name: Inocencio Horta Procedure Date: [...] or abscess without bleeding CPT copyright 2020 [employer]. All rights reserved. The codes documented in this report are preliminary and upon claim manager review may be revised to meet current compliance requirements. MD Haider Herrera MD 05/22/2024 8:43:28 AM This report has been signed electronically.Haider Georges MD Number of Addenda: 0 Note Initiated On: 05/22/2024 8:27 AM Scope In: Scope Out: Endoscopy Department at - [address] [place] [id number] Procedure Note Haider Georges MD - 05/22/2024 GI Patient Name: Inocencio Horta Procedure Date: [...] or abscess without bleeding CPT copyright 2020 [employer]. All rights reserved. The codes documented in this report are preliminary and upon claim manager reviewmay be revised to meet current compliance requirements. MD Haider Herrera MD 05/22/2024 8:43:28 AM This report has been signed electronically.Haider Georges MD Number of Addenda: 0 Note Initiated On: 05/22/2024 8:27 AM Scope In: Scope Out: Endoscopy Department at - [address] [place] [id number] IMPRESSION: - Diverticulosis in the entire examined [...] to Health Maintenance [place] [id number] [employer] Care Teams Digital Media Sales Consultant Relationship Specialty Start Date End Date Keven Silver MD [address] [place] [address] PCP - General Internal Medicine 03/06/24
--- OUTSIDE RECORDS SUMMARY | 2025-04-17 19:03 | XMS_ITS | Continuity of Care Document ---
Author Organization [facility] [address] [place] [address] Phone [phone] Care Team Providers Care Baby Nurse Name Role Phone Keven Silver M.D. Care Team Information Recei lashaun [phone] Problems Active Problems Provider Date Essential hypertension [...] every week 6ml Prem Duron M.D. 02/01/2025 [id number] Tablets Take 1 Tablet By Mouth Every Day Keven Silver M.D. Kgyozoovrwxhbd50ui Tablets Take 1/2 Tablet By Mouth Daily Skip Mora M.D Nitrvmoctl48lg Tablets Take 1 Tablet By Mouth Once Daily Skip Mora M.D Rosuvastatin Tnqsktx39rl Tablets Take 1 Tablet By Mouth Daily Skip Mora M.D Bmubdptrah38am Tablets Take 1/2 Tablet B y Mouth Daily Keven Silver M.D. Colchicine0.6mg Tablets Take 1 Tablet By Mouth Daily Keven Silvre M.D. Amlodipine Flpiumji6so Tablets Take 1 Tablet By Mouth Daily Keven Sliver M.D. Ujmmrfnbk79dx Tablets Take 1 Tablet By Mouth Daily Noe Koroma MD Folic Ieja1ba Tablets 1 qd Keven Nichols M.D. History Medications Ozempic (1 MG/Dose)4mg/3ML Solution Pen-Inject Inject 0.5MG Under The Skin Every Week 6ml Prem Duron M.D. 11/21/2024 - 11/21/2024 Ygfdwaql6cx/0.5ML Solution Auto-Inject 1 injection every week as [...]
== END 2025-04-17 16:27 | disposition home or self-care (01) ==
LOC: HO.HKAS 15:58
PROVIDERS: PCP Internal Medicine; Visit Provider Internal Medicine Nephrology
DX: I10 Essential (primary) hypertension (principal); E11.21 Type 2 diabetes mellitus with diabetic nephropathy; E79.0 Hyperuricemia without signs of inflammatory arthritis and tophaceous disease; N18.31 Chronic kidney disease, stage 3a
CPT/HCPCS: 99214